=== PATIENT | female | born 1940 | race Caucasian/White ===

== ENCOUNTER 2022-03-16 14:08 | Inpatient (IN) | payer MEDICARE, OTHER, SELFPAY ==
[2022-03-16] VITALS (31 sets, daily range): BP systolic 123–179; BP diastolic 73–109; PULSE 111–157; RESP 15–33; TEMP 36.5; O2SAT 91–96
--- NOTE | 2022-03-16 14:32 | DI.RAD.S_ITS ---
PROCEDURE: XR CHEST 1V INDICATIONS: Chest pain TECHNIQUE: One view of the chest was acquired. COMPARISON: None. FINDINGS: Surgical changes and devices: None. Lungs and pleura: Lungs are clear. No pleural effusions or pneumothorax. Mediastinum: Mediastinal contours appear normal. Heart size is mildly enlarged. Bones and chest wall: No suspicious bony lesions. Overlying soft tissues appear unremarkable. IMPRESSION: Mild cardiomegaly. No acute cardiopulmonary process demonstrated. Dictated by: Yfn Griggs M.D. on 03/16/2022 at 15:13 Approved by: Yfn Griggs M.D. on 03/16/2022 at 15:14
--- NOTE | 2022-03-16 14:37 | ED.ARRPALP ---
HPI - Arrhythmia/Palpitations General Chief Complaint: Arrhythmia/Palpitations Stated Complaint: Heart rate too fast- sent by Time Seen by Provider: 03/16/22 14:34 Source: patient Mode of arrival: Wheelchair History of Present Illness HPI narrative: Patient is a 81-year-old female history of ulcerative colitis who presents today from her GI doctor with elevated heart rate. She has noticed that she has no more short of breath lately she thought that she has been using her albuterol inhaler more than usual. However her heart rate in the office within the 150s. She denies any real chest pain or palpitations. She denies any fever chills cough for really any other symptoms. She is noted to be in SVT although monitor the rate of 150 Related Data Allergies Allergy/AdvReac Type Severity Reaction Status Date / Time CODEINE AdvReac Mild LOSS OF Uncoded 11/23/17 12:11 BALANCE MORPHINE AdvReac Mild VIOLENT N&V Uncoded 11/23/17 12:11 Review of Systems Review of Systems Narrative: GENERAL: Denies chills, fatigue, malaise, fever, sweats, travel HEENT: Denies sinus pain, ear pain, sore throat, difficulty swallowing, neck pain RESPIRATORY: Denies dyspnea, cough, wheezing, hemoptysis, sputum. CARDIOVASCULAR: See HPI GASTROINTESTINAL: Denies nausea, vomiting, abdominal pain, diarrhea, constipation, melena. : Denies dysuria, frequency, incontinence, hematuria, urinary retention, flank pain. MUSCULOSKELETAL: Denies weakness, joint pain, or bony pain SKIN: No rash, no erythema, no pruritus NEUROLOGIC: Denies weakness, dizziness, headache, numbness, change in speech, confusion PSYCHIATRIC: No concerning psychosocial issues. 12 point review of systems is negative except for those stated above and HPI Exam Initial Vital Signs Initial Vital Signs: Vital Signs Temperature 97.7 F 03/16/22 14:24 Pulse Rate 156 H 03/16/22 14:24 Respiratory Rate 22 03/16/22 14:24 Blood Pressure 179/107 H 03/16/22 14:24 Pulse Oximetry 96 03/16/22 14:24 Oxygen Delivery Method 03/16/22 14:24 GENERAL: Alert 81-year-old female and in no acute distress. HEENT: Head atraumatic,EOMI, pupils reactive, face symmetric, moist mucous membranes CARDIOVASCULAR: Tachycardic regular RESPIRATORY: Breath sounds equal bilaterally, no wheezes rales or rhonchi. ABDOMEN: Soft, nontender. Normoactive bowel sounds all 4 quadrants. No guarding or rebound. EXTREMITIES: Normal range of motion, no clubbing or edema. Neurovascularly intact NEUROLOGICAL: Alert and oriented x4.Normal gait and speech. SKIN: Warm, dry, no laceration, no petechiae, no rashes or lesions. Course Orders Ordered: ED Orders 03/16/22 14:32 XR chest 1V Stat EKG-12 Lead Stat 03/16/22 14:40 Complete Blood Count AUTO DIFF Stat Comprehensive Metabolic Panel Stat D Dimer Stat Lipase Stat Magnesium Stat NT-proBNP (BNP-Adult 18+) Stat PT [Prothrombin Time INR] Stat PTT [Partial Thromboplastin Time] Stat TSH [Thyroid Stimulating Hormone] Stat Troponin & CK Cardiac Panel Stat DILTIAZEM (Diltiazem 125 Mg/125 Ml-D5w) 125 mg in 125 mls @ 5 mls/hr IV TITRATE ASHLEY; Protocol Last Admin: 03/16/22 16:48 Dose: 5 mg/hr, 5 mls/hr Documented By: JANNA Discontinued Medications Apixaban (Apixaban 5 Mg Tablet) 5 mg PO NOW ONE Stop: 03/16/22 16:25 Last Admin: 03/16/22 16:48 Dose: 5 mg Documented By: JNANA Diltiazem HCl (Diltiazem 5 Mg/Ml Sdv) 10 mg IV NOW ONE Stop: 03/16/22 14:45 Last Admin: 03/16/22 15:01 Dose: 10 mg Documented By: JANNA Diltiazem HCl (Diltiazem 5 Mg/Ml Sdv) 20 mg IV NOW ONE Stop: 03/16/22 15:14 Last Admin: 03/16/22 15:34 Dose: 20 mg Documented By: JANNA POTASSIUM CHLORIDE IN WATER (Potassium Cl 10 Meq/100 Ml Shirley) 10 meq in 100 mls @ 100 mls/hr IV Q1H ASHLEY Stop: 03/16/22 21:14 Last Admin: 03/16/22 15:54 Dose: Not Given Documented By: JANNA Vital Signs Vital signs: Vital Signs - 8 hr 03/16/22 14:24 03/16/22 15:01 03/16/22 15:34 Temperature 97.7 F Pulse Rate 156 H 150 H 148 H Respiratory Rate 22 Blood Pressure 179/107 H 176/109 H 142/86 H Pulse Oximetry 96 Oxygen Delivery Method Room Air MDM - Arrhythmia/Palpitations Lab Data Result diagrams: 03/16/22 14:40 03/16/22 14:40 Labs: Lab Results 03/16/22 03/16/22 03/16/22 Range/Units 14:40 14:40 14:40 WBC 11.5 H (4.5-11.0) X10^3/uL RBC 4.10 (4.0-5.2) X10^6/uL Hgb 13.1 (12.0-16.0) g/dL Hct 39.4 (36-46) % MCV 96.2 (80-100) fL MCH 31.9 (26-34) PG MCHC 33.2 (30-36) % RDW 15.4 H (11.6-14.8) % Plt Count 302 (150-400) X10^3/uL Neut % (Auto) 82.0 H (50-75) % Lymph % (Auto) 11.5 L (25-40) % [place] % (Auto) 3.9 (3-14) % Eos % (Auto) 1.4 L (2-4) % Baso % (Auto) 1.2 (0-2) % Neut # (Auto) 9400 H (6972-6846) /uL Lymph # (Auto) 1300 (6881-8665) /uL [place] # (Auto) 500 (0-900) /uL Eos # (Auto) 200 (0-450) /uL Baso # (Auto) 100 (0-100) /uL PT 11.7 (10.1-12.7) SECONDS INR 1.1 (0.9-1.3) APTT 33 (26.4-36.2) SECONDS D-Dimer 232 H (<230) ng/mL Sodium 138 (137-145) mmol/L Potassium 4.2 (3.4-5.1) mmol/L Chloride 102 (98-107) mmol/L Carbon Dioxide 28 (22-32) mmol/L BUN 16 (7-17) mg/dL Creatinine 0.79 (0.52-1.04) mg/dL Estimated GFR > 60 (>60) mL/min BUN/Creatinine Ratio 20.3 (6-22) Glucose 147 H (80-110) mg/dL Calcium 9.0 (8.4-10.2) mg/dL Magnesium 2.0 (1.6-2.3) mg/dL Total Bilirubin 0.9 (0.2-1.3) mg/dL AST 30 (14-36) IU/L ALT 24 (<35) IU/L Alkaline Phosphatase 75 (38-126) U/L Total Creatine Kinase 39 (30-135) U/L CK-MB (CK-2) TNP CK-MB (CK-2) Rel Index TNP Troponin I 0.027 (0.01-0.034) ng/mL NT-Pro-B Natriuret Pep 835 H (<450) pg/mL Total Protein 7.3 (6.3-8.2) g/dL Albumin 4.2 (3.5-5.0) g/dL Globulin 3.1 (1.7-4.1) g/dL Albumin/Globulin Ratio 1.4 (1.0-2.8) Lipase 33 (23-300) U/L TSH (0.47-4.68) uIU/mL 03/16/22 Range/Units 14:40 WBC (4.5-11.0) X10^3/uL RBC (4.0-5.2) X10^6/uL Hgb (12.0-16.0) g/dL Hct (36-46) % MCV (80-100) fL MCH (26-34) PG MCHC (30-36) % RDW (11.6-14.8) % Plt Count (150-400) X10^3/uL Neut % (Auto) (50-75) % Lymph % (Auto) (25-40) % [place] % (Auto) (3-14) % Eos % (Auto) (2-4) % Baso % (Auto) (0-2) % Neut # (Auto) (3113-0017) /uL Lymph # (Auto) (4250-1399) /uL [place] # (Auto) (0-900) /uL Eos # (Auto) (0-450) /uL Baso # (Auto) (0-100) /uL PT (10.1-12.7) SECONDS INR (0.9-1.3) APTT (26.4-36.2) SECONDS D-Dimer (<230) ng/mL Sodium (137-145) mmol/L Potassium (3.4-5.1) mmol/L Chloride (98-107) mmol/L Carbon Dioxide (22-32) mmol/L BUN (7-17) mg/dL Creatinine (0.52-1.04) mg/dL Estimated GFR (>60) mL/min BUN/Creatinine Ratio (6-22) Glucose (80-110) mg/dL Calcium (8.4-10.2) mg/dL Magnesium (1.6-2.3) mg/dL Total Bilirubin (0.2-1.3) mg/dL AST (14-36) IU/L ALT (<35) IU/L Alkaline Phosphatase (38-126) U/L Total Creatine Kinase (30-135) U/L CK-MB (CK-2) CK-MB (CK-2) Rel Index Troponin I (0.01-0.034) ng/mL NT-Pro-B Natriuret Pep (<450) pg/mL Total Protein (6.3-8.2) g/dL Albumin (3.5-5.0) g/dL Globulin (1.7-4.1) g/dL Albumin/Globulin Ratio (1.0-2.8) Lipase (23-300) U/L TSH 2.44 (0.47-4.68) uIU/mL Imaging Data Chest x-ray: Radiologist's Impresson: XRay Report Signed Patient: Ruby Reynolds MR#: [id number] : 1940 Acct:[id number] Age/Sex: 81 / F Date of Service: 03/16/22 Loc: ED Accession Number: [id number] ?? Procedure: XR chest 1V Ordering Provider: Nataliia Sandoval D.O. PROCEDURE:? XR CHEST 1V ? INDICATIONS: Chest pain ? TECHNIQUE:? One view of the chest was acquired.? ? COMPARISON:? None. ? FINDINGS:? ? Surgical changes and devices:? None.? ? Lungs and pleura:? Lungs are clear.? No pleural effusions or pneumothorax.? ? Mediastinum:? Mediastinal contours appear normal.? Heart size is mildly enlarged. ? Bones and chest wall:? No suspicious bony lesions.? Overlying soft tissues appear unremarkable.? ? IMPRESSION:? Mild cardiomegaly.? No acute cardiopulmonary process demonstrated.? ? ? Dictated by: Yfn Griggs M.D. on 03/16/2022 at 15:13 ? ? Approved by: Yfn Griggs M.D. on 03/16/2022 at 15:14 ? ECG Data Interpretation: Tachycardia rate 151 SVT versus atrial flutter 1-[address] changes Atrial flutter rate [address] changes PVCs noted MDM Narrative Medical decision making narrative: Patient is found to be new onset atrial fibrillation. It is difficult to tell when this actually started not a good candidate for cardioversion. Initially she was given 10 mg of diltiazem she did not respond she was then given another 20 mg of diltiazem which slowed her rate and showed atrial flutter. BNP is mildly elevated chest x-ray shows some mild cardiomegaly. She is not hypoxic. She is feeling better once her heart rate is controlled. At this time will she will need to be admitted for further management. Dr. Mckenzie accepts patient Discharge Plan Departure Patient Disposition: Admitted As Inpatient Clinical Impression: Atrial fibrillation with rapid ventricular response Admit Date/Time: 03/16/22 16:28 Admit Provider: Jeff Mckenzie
[2022-03-16 14:57] LABS: Add Manual Diff / Slide Review NO; Basophils Absolute Auto 100 /uL (0-100); Basophils Percent Auto 1.2 % (0-2); Eosinophils Absolute Auto 200 /uL (0-450); Eosinophils Percent Auto 1.4 % (2-4); Hematocrit 39.4 % (36-46); Hemoglobin 13.1 g/dL (12.0-16.0); Lymphocytes Absolute Auto 1300 /uL (1100-4500); Lymphocytes Percent Auto 11.5 % (25-40); Mean Corpuscular HGB Conc 33.2 % (30-36); Mean Corpuscular Hemoglobin 31.9 PG (26-34); Mean Corpuscular Volume 96.2 fL (80-100); Monocytes Absolute Auto 500 /uL (0-900); Monocytes Percent Auto 3.9 % (3-14); Neutrophils Absolute Auto 9400 /uL (1500-7000); Platelet Count 302 X10^3/uL (150-400); Red Cell Distribution Width 15.4 % (11.6-14.8); White Blood Cell Count 11.5 X10^3/uL (4.5-11.0)
[2022-03-16] MEDS: dilTIAZem 5 MG/ML SDV 10 MG IV (15:01)
[2022-03-16 15:13] LABS: INR 1.1 (0.9-1.3); Prothrombin Time 11.7 SECONDS (10.1-12.7)
[2022-03-16 15:16] LABS: PTT Partial Thromboplastin Tim 33 SECONDS (26.4-36.2)
[2022-03-16 15:17] LABS: Alanine Aminotransferase 24 IU/L (<35); Albumin 4.2 g/dL (3.5-5.0); Albumin Globulin Ratio 1.4 (1.0-2.8); Alkaline Phosphatase 75 U/L (38-126); Aspartate Aminotransferase 30 IU/L (14-36); BUN Creatinine Ratio 20.3 (6-22); Bilirubin Total 0.9 mg/dL (0.2-1.3); Blood Urea Nitrogen 16 mg/dL (7-17); Carbon Dioxide 28 mmol/L (22-32); Chloride 102 mmol/L (98-107); Creatine Kinase 39 U/L (30-135); D Dimer 232 ng/mL (<230); Estimated Glomerular Filt Rate > 60 mL/min (>60); Globulin 3.1 g/dL (1.7-4.1); Glucose 147 mg/dL (80-110); HEMOLYSIS < 15 (0-50); Lipase 33 U/L (23-300); Potassium 4.2 mmol/L (3.4-5.1); Sodium 138 mmol/L (137-145); Total Protein 7.3 g/dL (6.3-8.2)
[2022-03-16 15:29] LABS: NT-proBNP (BNP-Adult 18+) 835 pg/mL (<450); Troponin I 0.027 ng/mL (0.01-0.034)
[2022-03-16] MEDS: dilTIAZem 5 MG/ML SDV 20 MG IV (15:34)
[2022-03-16 16:39] LABS: Thyroid Stimulating Hormone 2.44 uIU/mL (0.47-4.68)
[2022-03-16] MEDS: DILTIAZEM 125 MG/125 ML PIGGYBACK IV (16:48)
[2022-03-16] MEDS: APIXABAN 5 MG TABLET PO (16:48)
--- NOTE | 2022-03-16 17:40 | P.HP_ITS ---
History of Present Illness History of Present Illness Date Patient Seen: 03/16/22 Time Patient Seen: 17:40 Chief complaint: Heart rate too fast- sent by Narrative: Ruby Reynolds is a 81yo F with PMH of ulcerative colitis in remission and obesity who presents from GI clinic after being found to be in A-fib RVR. She states she does not have any history of A-fib. She has no history of heart problems. At the GI clinic she was found to have a HR of 150 at rest. Was sent to the ED where A-fib was confirmed via EKG. Dilt drip started. She cannot tell she is in A-fib, but has experienced dyspnea with exertion the past 3 days. She denies history of CASEY but does snore alot per . She denies CP, SOB, abd pain, diarrhea or LE swelling. Her UC is currently in remission on azathioprine and mesalamine and she has not had rectal bleeding for several years. Patient History Medical History (Updated 03/16/22 @ 22:38 by Jeff Mckenzie DO) Ulcerative colitis in remission Family & Social History Social History: Former smoker and quit in . Drinks alcohol rarely. Meds Home Medications and Allergies Home Medications Medication Instructions Recorded Confirmed Type azathioprine 50 mg tablet 100 mg PO DAILY 03/16/22 03/16/22 History cetirizine 10 mg tablet 10 mg PO DAILY 03/16/22 03/16/22 History cholecalciferol (vitamin D3) 50 2,000 unit PO DAILY 03/16/22 03/16/22 History mcg (2,000 unit) tablet mesalamine 1.2 gram tablet,delayed 2.4 g PO BID 03/16/22 03/16/22 History release (Lialda) Allergies Allergy/AdvReac Type Severity Reaction Status Date / Time codeine AdvReac Verified 03/16/22 18:42 morphine AdvReac Verified 03/16/22 18:42 Review of Systems Review of Systems Narrative: All review of systems negative unless otherwise stated in HPI. Exam Vital Signs (past 8 hours): - 03/16/22 14:24 03/16/22 15:01 03/16/22 15:34 Temperature 97.7 F Pulse Rate 156 H 150 H 148 H Respiratory Rate 22 Blood Pressure 179/107 H 176/109 H 142/86 H Pulse Oximetry 96 Oxygen Delivery Method Room Air Oxygen Delivery Method Room Air Narrative Exam Narrative: GEN: Obese female in NAD HEENT: Mucous membraines moist. PERRL PULM: CTA bilaterally CV: Irregularly irregular, tachycardic. No murmurs. EXT: No edema ABD: Soft and nontender NEURO: No focal deficits. SKIN: No rashes. Objective Labs Result Diagrams: 03/16/22 14:40 03/16/22 14:40 Labs: Laboratory Results - last 24 hr 03/16/22 03/16/22 03/16/22 14:40 14:40 14:40 WBC 11.5 H RBC 4.10 Hgb 13.1 Hct 39.4 MCV 96.2 MCH 31.9 MCHC 33.2 RDW 15.4 H Plt Count 302 Neut % (Auto) 82.0 H Lymph % (Auto) 11.5 L [place] % (Auto) 3.9 Eos % (Auto) 1.4 L Baso % (Auto) 1.2 Neut # (Auto) 9400 H Lymph # (Auto) 1300 [place] # (Auto) 500 Eos # (Auto) 200 Baso # (Auto) 100 PT 11.7 INR 1.1 APTT 33 D-Dimer 232 H Sodium 138 Potassium 4.2 Chloride 102 Carbon Dioxide 28 BUN 16 Creatinine 0.79 Estimated GFR > 60 BUN/Creatinine Ratio 20.3 Glucose 147 H Calcium 9.0 Magnesium 2.0 Total Bilirubin 0.9 AST 30 ALT 24 Alkaline Phosphatase 75 Total Creatine Kinase 39 CK-MB (CK-2) TNP CK-MB (CK-2) Rel Index TNP Troponin I 0.027 NT-Pro-B Natriuret Pep 835 H Total Protein 7.3 Albumin 4.2 Globulin 3.1 Albumin/Globulin Ratio 1.4 Lipase 33 TSH 03/16/22 14:40 WBC RBC Hgb Hct MCV MCH MCHC RDW Plt Count Neut % (Auto) Lymph % (Auto) [place] % (Auto) Eos % (Auto) Baso % (Auto) Neut # (Auto) Lymph # (Auto) [place] # (Auto) Eos # (Auto) Baso # (Auto) PT INR APTT D-Dimer Sodium Potassium Chloride Carbon Dioxide BUN Creatinine Estimated GFR BUN/Creatinine Ratio Glucose Calcium Magnesium Total Bilirubin AST ALT Alkaline Phosphatase Total Creatine Kinase CK-MB (CK-2) CK-MB (CK-2) Rel Index Troponin I NT-Pro-B Natriuret Pep Total Protein Albumin Globulin Albumin/Globulin Ratio Lipase TSH 2.44 Assessment & Plan Assessment & Plan narrative: # New-onset atrial fibrillation with RVR -HR 150's at GI clinic and sent to ED -start dilt drip and admit to ICU for titrating -start Eliquis due to [id number] of 3 -obtain echo -consider outpatient sleep study to check for CASEY as patient has risk factors # elevated BP -no h/o of HTN, BP consistently elevated at 140-170's systolic -consider starting BP meds while admitted # ulcerative colitis -currently in remission for past 7 years -followed by Dr. Giang GI -continue home azathioprine and mesalamine # obesity -Bariatric precautions #mild leukocytosis -WBC 11.5 -monitor for infection Full code COVID negative DVT proph with eliquis Proxy is . I have reviewed and reconciled all home medications. Time Spent With Patient Critical Care time: I spent a total of [] minutes of critical care time on this patient's care today; this time is exclusive of procedural time.
[2022-03-17] VITALS (30 sets, daily range): BP systolic 111–150; BP diastolic 55–99; PULSE 68–102; RESP 13–28; TEMP 36.1–36.4; O2SAT 85–96; BMI 45.6
--- NOTE | 2022-03-17 01:52 | PC.NURSE ---
Addendum entered by Nella Arreguin R.N. 03/17/22 01:57: Correction: marcie chew and marcie tea. Original Note: Pt noted to convert to sinus rhythn, 12 lead EKG obtained to confirm. Pt c/o indigestion, unrelieved by her usual home remedies of marcie chew and finger tea. Pt states the pain is in left chest radiating to armpit, better when ambulating. ARJUN Romero notified of rhythm change and complaints of chest pain, orders received. Will begin to titrate diltiazem drip down
[2022-03-17] MEDS: MAG HYDROX/ALUMINUM/SIMETH SUS 20 ML, LIDOCAINE VISCOUS 2% 15 ML PO (02:06)
[2022-03-17] MEDS: NITROGLYCERIN 0.4 MG SL TAB SL (02:47)
[2022-03-17] MEDS: ONDANSETRON 4 MG/2 ML INJ IV (03:05)
[2022-03-17] MEDS: PANTOPRAZOLE 40 MG VIAL IV (03:05)
--- NOTE | 2022-03-17 03:41 | PC.NURSE ---
SpO2 dropped into 80's on room air. 2 liters O2 by NC applied, sats now 95%
--- NOTE | 2022-03-17 03:45 | DI.CT.S_ITS ---
PROCEDURE: CT ANGIO CHEST PE PROTOCOL INDICATIONS: Short of breath, chest pain TECHNIQUE: After the administration of intravenous contrast, 2 mm thick sections acquired from the pulmonary apices to the posterior costophrenic angles. 3-dimensional maximum intensity projection (MIP) coronal and sagittal reformats were then acquired through the thorax. For radiation dose reduction, the following was used: automated exposure control, adjustment of mA and/or kV according to patient size. COMPARISON: [facility], CR, XR CHEST 1V, 03/16/2022, 14:48. FINDINGS: Image quality: Excellent. Pulmonary arteries: Pulmonary arteries are normal in size, and demonstrate no intraluminal filling defects to suggest central pulmonary embolism. Lungs and pleura: Small bilateral pleural effusions are seen, right larger than left. Overlying dependent atelectasis is seen. Mediastinum: Heart size is mildly enlarged, without pericardial effusion. Mildly enlarged lymph nodes are seen. There is a prevascular lymph node seen that measures 10 x 18 mm in greatest axial dimension. Thoracic aorta is normal in caliber and enhancement. 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 This is considered to be a developmental variant of no clinical consequence. Esophagus is normal in caliber, without hiatal hernia. Bones and chest wall: Cervical spine fixation hardware is partially seen. No suspicious bony lesions. Ribs and thoracic spine appear intact throughout. Thyroid gland demonstrates no significant abnormality. No axillary or supraclavicular adenopathy. Abdomen: Diffuse fatty liver infiltration is noted. The visualized portions of the upper abdominal structures are otherwise unremarkable for imaging technique. IMPRESSION: Negative for pulmonary embolism. Small bilateral pleural effusions, with overlying atelectasis. Mild mediastinal lymphadenopathy, potentially reactive. Mild cardiomegaly. Incidental note is made of: Cervical spine fixation hardware Bovine type aortic branching pattern Note: No significant discrepancy from the preliminary report. Dictated by: Domenic Bah M.D. on 03/17/2022 at 8:25 Approved by: Domenic Bah M.D. on 03/17/2022 at 8:28
--- NOTE | 2022-03-17 03:50 | PC.NURSE ---
ARJUN Romero notified of pt condition, including new oxygen requirement, RR 20's, fatigue, and crackles to LLL. Discussed concern for PE, response to medications, and pt's mild distress this evening. CTA ordered and repeat BNP.
[2022-03-17 04:00] LABS: Add Manual Diff / Slide Review NO; Basophils Absolute Auto 100 /uL (0-100); Basophils Percent Auto 0.9 % (0-2); Eosinophils Absolute Auto 200 /uL (0-450); Eosinophils Percent Auto 1.5 % (2-4); Hematocrit 35.7 % (36-46); Lymphocytes Absolute Auto 1400 /uL (1100-4500); Lymphocytes Percent Auto 12.4 % (25-40); Mean Corpuscular HGB Conc 33.7 % (30-36); Mean Corpuscular Hemoglobin 32.3 PG (26-34); Monocytes Absolute Auto 500 /uL (0-900); Monocytes Percent Auto 4.5 % (3-14); Neutrophils Absolute Auto 9100 /uL (1500-7000); Neutrophils Percent Auto 80.7 % (50-75); Platelet Count 278 X10^3/uL (150-400); Red Blood Cell Count 3.72 X10^6/uL (4.0-5.2); Red Cell Distribution Width 15.5 % (11.6-14.8); White Blood Cell Count 11.3 X10^3/uL (4.5-11.0)
[2022-03-17 04:18] LABS: Alanine Aminotransferase 22 IU/L (<35); Albumin 3.5 g/dL (3.5-5.0); Albumin Globulin Ratio 1.3 (1.0-2.8); Alkaline Phosphatase 62 U/L (38-126); Aspartate Aminotransferase 37 IU/L (14-36); BUN Creatinine Ratio 23.9 (6-22); Blood Urea Nitrogen 16 mg/dL (7-17); Calcium 8.3 mg/dL (8.4-10.2); Carbon Dioxide 23 mmol/L (22-32); Chloride 106 mmol/L (98-107); Estimated Glomerular Filt Rate > 60 mL/min (>60); Globulin 2.8 g/dL (1.7-4.1); Glucose 167 mg/dL (80-110); HEMOLYSIS 21 (0-50); Potassium 4.1 mmol/L (3.4-5.1); Sodium 138 mmol/L (137-145); Total Protein 6.3 g/dL (6.3-8.2)
[2022-03-17 04:26] LABS: NT-proBNP (BNP-Adult 18+) 606 pg/mL (<450)
[2022-03-17 04:29] LABS: Troponin I 0.035 ng/mL (0.01-0.034)
[2022-03-17 05:18] LABS: COVID19 -Nasal RAPID Negative (Negative)
[2022-03-17] MEDS: dilTIAZem 30 MG TABLET PO ×3 (06:48→18:25)
--- NOTE | 2022-03-17 07:12 | PM.PN.1 ---
Subjective Subjective Date Patient Seen: 03/17/22 Time Patient Seen: 17:17 Interval history: Patient states she has been feeling short of breath and wheezy without her inhaler and is requesting her albuterol. Otherwise she has been tolerating po dilt and HR has been 60-70's. Exam Vital Signs (past 8 hours): - 03/16/22 23:30 03/17/22 00:00 03/17/22 00:05 Pulse Rate 116 H 97 H Respiratory Rate 18 15 Blood Pressure 150/99 H Pulse Oximetry 93 93 Oxygen Delivery Method Oxygen Flow Rate 03/17/22 00:05 03/17/22 00:30 03/17/22 01:00 Pulse Rate 102 H 101 H 97 H Respiratory Rate 20 13 25 H Blood Pressure Pulse Oximetry 93 93 92 Oxygen Delivery Method Oxygen Flow Rate 03/17/22 01:30 03/17/22 01:47 03/17/22 01:47 Pulse Rate 72 73 Respiratory Rate 15 26 H Blood Pressure 146/66 H Pulse Oximetry 93 92 Oxygen Delivery Method Oxygen Flow Rate 03/17/22 02:00 03/17/22 02:30 03/17/22 02:44 Pulse Rate 71 69 Respiratory Rate 15 15 Blood Pressure 129/61 Pulse Oximetry 92 92 Oxygen Delivery Method Oxygen Flow Rate 03/17/22 02:44 03/17/22 03:40 03/17/22 03:00 Pulse Rate 71 69 Respiratory Rate 20 16 Blood Pressure Pulse Oximetry 92 95 89 L Oxygen Delivery Method Nasal Cannula Oxygen Flow Rate 2 03/17/22 03:01 03/17/22 03:01 03/17/22 03:14 Pulse Rate 69 Respiratory Rate 17 Blood Pressure 133/72 117/61 Pulse Oximetry 89 L Oxygen Delivery Method Oxygen Flow Rate 03/17/22 03:14 03/17/22 03:30 03/17/22 04:00 Pulse Rate 68 71 68 Respiratory Rate 19 19 21 Blood Pressure Pulse Oximetry 92 85 L 94 Oxygen Delivery Method Oxygen Flow Rate 03/17/22 04:30 03/17/22 05:00 03/17/22 05:30 Pulse Rate 86 74 73 Respiratory Rate 26 H 18 17 Blood Pressure Pulse Oximetry 92 93 93 Oxygen Delivery Method Oxygen Flow Rate Oxygen Delivery Method Nasal Cannula Oxygen Flow Rate 2 Narrative Exam Narrative: GEN: Obese female in NAD HEENT: Mucous membraines moist. PERRL PULM: Mild wheezes CV: Irregularly irregular, normal rate. No murmurs. EXT: No edema ABD: Soft and nontender NEURO: No focal deficits. SKIN: No rashes. Objective Labs Result Diagrams: 03/17/22 03:30 03/17/22 03:30 Labs: Laboratory Results - last 24 hr 03/16/22 03/16/22 03/16/22 14:40 14:40 14:40 WBC 11.5 H RBC 4.10 Hgb 13.1 Hct 39.4 MCV 96.2 MCH 31.9 MCHC 33.2 RDW 15.4 H Plt Count 302 Neut % (Auto) 82.0 H Lymph % (Auto) 11.5 L [place] % (Auto) 3.9 Eos % (Auto) 1.4 L Baso % (Auto) 1.2 Neut # (Auto) 9400 H Lymph # (Auto) 1300 [place] # (Auto) 500 Eos # (Auto) 200 Baso # (Auto) 100 PT 11.7 INR 1.1 APTT 33 D-Dimer 232 H Sodium 138 Potassium 4.2 Chloride 102 Carbon Dioxide 28 BUN 16 Creatinine 0.79 Estimated GFR > 60 BUN/Creatinine Ratio 20.3 Glucose 147 H Calcium 9.0 Magnesium 2.0 Total Bilirubin 0.9 AST 30 ALT 24 Alkaline Phosphatase 75 Total Creatine Kinase 39 CK-MB (CK-2) TNP CK-MB (CK-2) Rel Index TNP Troponin I 0.027 NT-Pro-B Natriuret Pep 835 H Total Protein 7.3 Albumin 4.2 Globulin 3.1 Albumin/Globulin Ratio 1.4 Lipase 33 TSH SARS-CoV-2 (PCR) 03/16/22 03/17/22 03/17/22 14:40 03:30 03:30 WBC 11.3 H RBC 3.72 L Hgb 12.0 Hct 35.7 L MCV 96.0 MCH 32.3 MCHC 33.7 RDW 15.5 H Plt Count 278 Neut % (Auto) 80.7 H Lymph % (Auto) 12.4 L [place] % (Auto) 4.5 Eos % (Auto) 1.5 L Baso % (Auto) 0.9 Neut # (Auto) 9100 H Lymph # (Auto) 1400 [place] # (Auto) 500 Eos # (Auto) 200 Baso # (Auto) 100 PT INR APTT D-Dimer Sodium 138 Potassium 4.1 Chloride 106 Carbon Dioxide 23 BUN 16 Creatinine 0.67 Estimated GFR > 60 BUN/Creatinine Ratio 23.9 H Glucose 167 H Calcium 8.3 L Magnesium Total Bilirubin 1.0 AST 37 H ALT 22 Alkaline Phosphatase 62 Total Creatine Kinase CK-MB (CK-2) CK-MB (CK-2) Rel Index Troponin I 0.035 H NT-Pro-B Natriuret Pep Total Protein 6.3 Albumin 3.5 Globulin 2.8 Albumin/Globulin Ratio 1.3 Lipase TSH 2.44 SARS-CoV-2 (PCR) 03/17/22 03/17/22 03:30 04:55 WBC RBC Hgb Hct MCV MCH MCHC RDW Plt Count Neut % (Auto) Lymph % (Auto) [place] % (Auto) Eos % (Auto) Baso % (Auto) Neut # (Auto) Lymph # (Auto) [place] # (Auto) Eos # (Auto) Baso # (Auto) PT INR APTT D-Dimer Sodium Potassium Chloride Carbon Dioxide BUN Creatinine Estimated GFR BUN/Creatinine Ratio Glucose Calcium Magnesium Total Bilirubin AST ALT Alkaline Phosphatase Total Creatine Kinase CK-MB (CK-2) CK-MB (CK-2) Rel Index Troponin I NT-Pro-B Natriuret Pep 606 H Total Protein Albumin Globulin Albumin/Globulin Ratio Lipase TSH SARS-CoV-2 (PCR) Negative PFSH Medical History (Updated 03/16/22 @ 22:38 by Jeff Mckenzie DO) Ulcerative colitis in remission Social History household members: spouse Smoking Status: Former smoker Assessment & Plan Assessment & Plan narrative: # New-onset atrial fibrillation, RVR component resolved -HR 150's at GI clinic and sent to ED -weaned off dilt drip and well controlled HR on 30mg po dilt q6h, change to dilt XL 120 daily starting 03/18 -continue Eliquis due to [id number] of 3 -awaiting echo read -consider outpatient sleep study to check for CASEY as patient has risk factors # acute hypoxia -patient requiring 2L NC -likely secondary to asthma -restart home inhalers and loratidine # type 2 diabetes -A1c returned at 7.7%, patient not a known diabetic -diabetes education consult -low dose SSI # elevated BP -no h/o of HTN, BP consistently elevated at 140-170's systolic -consider starting BP meds while admitted # ulcerative colitis -currently in remission for past 7 years -followed by Dr. Giang GI -continue home azathioprine and mesalamine # obesity -Bariatric precautions #mild leukocytosis -WBC 11.5 -monitor for infection Full code COVID negative DVT proph with eliquis Proxy is . I have reviewed and reconciled all home medications. Dispo: D/c on 03/18. Time Spent With Patient Critical Care time: I spent a total of [] minutes of critical care time on this patient's care today; this time is exclusive of procedural time.
--- NOTE | 2022-03-17 07:18 | DI.ECHO.S_ITS ---
[facility]---------+ [facility] +---------+ : : [address] : : : : [id number] : : : : Phone: [phone]+ Echocardiogram Report + + :Name: SUBHASH BELLAMY Study Date: 03/17/2022 Height: 67 in : :[facility] ReadingLocation: Weight: 291 lb : : Gender: Female BSA: 2.4 m2 : :: 1940 Age: 81 yrs BP: 117/61 mmHg: :Reason For Study: ATRIAL FIBRILLATION : :Ordering Physician: BANDAR, : :TERI Jamil D.O Performed By: Jeanne Horner : :Referring: TERI PORTILLO D.O : + + Interpretation Summary The left ventricle is mildly dilated. Left ventricular ejection fraction is estimated to be 60 +/- 5%. Left ventricular systolic function is normal. The right ventricle is grossly normal size. The right ventricular systolic function is normal. There is moderate mitral regurgitation. The aortic valve is trileaflet. There is minimally reduced leaflet mobility. There is mild tricuspid regurgitation. Right ventricular systolic pressure is estimated to be 42 mmHg plus the clinically estimated CVP which cannot be estimated on this exam. Procedure: A two-dimensional transthoracic echocardiogram with color flow and Doppler was performed. The study quality was technically adequate. There is no prior echocardiogram noted for this patient. The patient was in sinus rhythm with heart rates between 75-90 bpm during the exam. The patient had occasional PACs during the exam. Left Ventricle: The left ventricle is mildly dilated. There is normal left ventricular wall thickness. There is no thrombus. Left ventricular ejection fraction is estimated to be 60 +/- 5%. Left ventricular systolic function is normal. There are no focal wall motion abnormalities. Diastolic function could not be accurately assessed due to atrial fibrillation. E/E' med: 22.7. Right Ventricle: The right ventricle is not well visualized. The right ventricle is grossly normal size. The right ventricular systolic function is normal. Atria: The left atrium is severely dilated. The right atrium is moderately dilated. There is no Doppler evidence for an interatrial shunt. Mitral Valve: The mitral valve leaflets appear borderline thickened, but open well. There is mild mitral annular calcification. The mitral valve leaflets are slightly calcified. There is moderate mitral regurgitation. Aortic Valve: The aortic valve is trileaflet. The aortic valve is mildly calcified. There is minimally reduced leaflet mobility. There is no hemodynamically significant valvular aortic stenosis. No aortic regurgitation is present. Tricuspid Valve: The tricuspid valve is normal. There is mild tricuspid regurgitation. Right ventricular systolic pressure is estimated to be 42 mmHg plus the clinically estimated CVP which cannot be estimated on this exam. Pulmonic Valve: The pulmonic valve is not well seen, but is grossly normal. There is trace pulmonic regurgitation. Great Vessels: The aortic root is normal size. The dimensions of the ascending aorta are normal. The aortic arch could not be visualized. The inferior vena cava was not visualized. Pericardium/ Pleura There is no pericardial effusion. There is an anterior echo-free space consistent with a fat pad. There is no pleural effusion. MMode/2D Measurements & Calculations LVIDd: 5.6 cm LVOT diam: 2.2 cm LVIDs: 3.5 cm Ao root diam: 3.1 cm FS: 37.4 % asc Aorta Diam: 3.4 cm EPSS: 1.1 cm IVSd: 0.99 cm LVPWd: 1.1 cm LV gonzalez. diameter/BSA (cm/m^2): 2.3 LV sys. diameter/BSA (cm/m^2): 1.5 LA A2 area: 33.5 cm2 RA long axis: 6.1 cm LA A4 area: 32.6 cm2 RA area: 26.2 cm2 LA length (vol): 7.3 cm RA vol: 95.9 ml LA vol: 127.8 ml RA : 40.4 ml/m2 LA vol index: 53.9 ml/m2 TAPSE: 2.6 cm Doppler Measurements & Calculations Ao V2 max: 193.3 cm/sec LVOT Max Sarthak: 84.8 cm/sec Ao V2 mean: 131.3 cm/sec LV V1 max P.9 mmHg Ao max P.0 mmHg LV V1 VTI: 15.8 cm Ao mean P.8 mmHg JESSICA(I,D): 1.8 cm2 Ao V2 VTI: 33.3 cm JESSICA(V,D): 1.6 cm2 sev ratio: 0.47 JESSICA indexed to BSA (cm^2/m^2): 0.75 MV E max sarthak: 146.1 cm/sec TR max sarthak: 323.0 cm/sec MV A max sarthak: 30.8 cm/sec TR max P.8 mmHg MV E/A: 4.7 PA V2 max: 99.9 cm/sec Med Peak E' Sarthak: 6.4 cm/sec PA V2 mean: 66.5 cm/sec E/E' med: 22.7 PA mean P.0 mmHg Lat Peak E' Sarthak: 8.2 cm/sec PA pr(Accel): 34.5 mmHg E/E' lat: 17.9 E/e' average: 20.3 MV dec time: 0.27 sec MR ERO: 0.50 cm2 MR PISA: 5.6 cm2 SV(LVOT): 59.2 ml MR flow rate: 240.1 cm3/sec MR PISA radius: 0.94 cm Reading Physician:11:12 AM
[2022-03-17 07:57] LABS: Hemoglobin A1C% w Est Avg Glu 7.7 % (4.0-6.0)
[2022-03-17] MEDS: APIXABAN 5 MG TABLET PO ×2 (09:30→20:39)
[2022-03-17] MEDS: azaTHIOprine 50 MG TABLET 100 MG PO (10:43)
[2022-03-17] MEDS: MESALAMINE 800 MG TABLET.DR 2400 MG PO (10:44)
--- NOTE | 2022-03-17 15:36 | DIET.CONS2 ---
Dietary Inpatient Consultation Note Admission Date: 03/16/2022 16:28 Attempted to meet c pt at bedside, working with other provider at the time. Changed pts diet order to CCD3 with heart healthy modifier from Heart Healthy related to new onset DM2 (HgA1c 7.7). Will consult c pt in am. Diet: 03/17/22 Dinner Carbohydrate Consistent Diet Diet Modifications: heart healthy Carbohydrate level: Medium (3 CHO) Bedtime snack: Yes Electronically Signed by: Griselda Lakhani 03/17/22 15:37 Clinical Dietitian [address] [address]
[2022-03-17] MEDS: ALBUTEROL 2.5 MG/3 ML NEB (ADULT) INH (19:46)
[2022-03-17] MEDS: BUDESONIDE 0.5 MG/2 ML NEB INH (19:46)
[2022-03-18] VITALS (11 sets, daily range): BP systolic 101–133; BP diastolic 50–71; PULSE 82–88; RESP 18–22; TEMP 36.2–36.6; O2SAT 89–96
[2022-03-18] MEDS: dilTIAZem 30 MG TABLET PO ×2 (01:47→05:29)
[2022-03-18] MEDS: ALBUTEROL 2.5 MG/3 ML NEB (ADULT) INH ×4 (02:26→20:03)
[2022-03-18] MEDS: guaiFENesin Solution 100 MG/5 ML UDC PO (05:24)
[2022-03-18 06:14] LABS: Add Manual Diff / Slide Review NO; Basophils Absolute Auto 0 /uL (0-100); Basophils Percent Auto 0.5 % (0-2); Eosinophils Absolute Auto 100 /uL (0-450); Hematocrit 34.7 % (36-46); Hemoglobin 11.8 g/dL (12.0-16.0); Lymphocytes Absolute Auto 900 /uL (1100-4500); Mean Corpuscular HGB Conc 33.9 % (30-36); Mean Corpuscular Hemoglobin 32.7 PG (26-34); Mean Corpuscular Volume 96.3 fL (80-100); Monocytes Absolute Auto 600 /uL (0-900); Monocytes Percent Auto 5.7 % (3-14); Neutrophils Absolute Auto 8600 /uL (1500-7000); Neutrophils Percent Auto 83.8 % (50-75); Platelet Count 268 X10^3/uL (150-400); Red Blood Cell Count 3.61 X10^6/uL (4.0-5.2); Red Cell Distribution Width 15.7 % (11.6-14.8); White Blood Cell Count 10.3 X10^3/uL (4.5-11.0)
[2022-03-18 06:18] LABS: BUN Creatinine Ratio 22.5 (6-22); Blood Urea Nitrogen 16 mg/dL (7-17); Calcium 8.5 mg/dL (8.4-10.2); Carbon Dioxide 28 mmol/L (22-32); Chloride 102 mmol/L (98-107); Estimated Glomerular Filt Rate > 60 mL/min (>60); Glucose 160 mg/dL (80-110); HEMOLYSIS < 15 (0-50); Potassium 4.4 mmol/L (3.4-5.1); Sodium 136 mmol/L (137-145)
[2022-03-18] MEDS: APIXABAN 5 MG TABLET PO ×2 (09:07→21:08)
[2022-03-18] MEDS: INSULIN LISPRO 100 UNIT/ML 3ML VIAL SUBCUT ×2 (09:08→17:18)
[2022-03-18] MEDS: BUDESONIDE 0.5 MG/2 ML NEB INH ×2 (09:08→20:04)
[2022-03-18] MEDS: dilTIAZem CD 120 MG CAP PO (10:59)
[2022-03-18] MEDS: LORATADINE 10 MG TABLET PO (10:59)
[2022-03-18] MEDS: MESALAMINE 800 MG TABLET.DR 2400 MG PO (10:59)
[2022-03-18] MEDS: azaTHIOprine 50 MG TABLET 100 MG PO (10:59)
--- NOTE | 2022-03-18 13:07 | CM.DANOTE ---
Patient is a 81 yo female who was admitted on 03/16/22 for Heart Rate Issues. Pt has [employer] for insurance and her PCP is Apoorva Estrella. EMR was reviewed. Per MD, pt with hx of AFIB and ulcerative colitis in remission and admitted for Echo and diuresis. Per RT, pt remains on oxygen currently and still has fluid buildup and recommending diuresis. SW met bedside with pt and explained role and she confirms she lives with her spouse in [place] and is mostly independent with ADL's and drives and does not have home oxygen at baseline. Pt states her spouse is her DPOA and her Dtr lives in [place] and is up here visiting now and they all had plans to go camping at [place] and spouse will be bedside later this morning in case pt can d/c and he will transport pt up to their campsite with their Dtr today or tomorrow. Pt denies any hx of HH or SNF and aware that there's a chance she may need to d/c with new Home O2 but attempts will be made to wean her off oxygen prior to d/c. Pt states she also was told she may have new borderline diabetes as well. Pt does not anticipate any needs at d/c and is hopeful to d/c later today but aware she may not be stable for d/c until tomorrow. Plan: SW to follow for further dieuresis and RT for oxygen levels towards confirming safe plan of d/c home with spouse assist and any further identified needs. PARRISH Archibald Discharge Planning/Care Management CM Discharge Assessment Start: 03/18/22 13:05 Freq: Status: Active Protocol: Document 03/18/22 13:06 (Rec: 03/18/22 13:07 [id number]) Discharge Planning Assessment Assigned Braider Setter PARRISH Kang DPOA/Assigned Designee Name spouse Daron Contact Information [phone] Advance Directives? No Advance Directives on File No History Provided By Patient,Medical Record Has Patient been admitted in last 30 No days? Prior Living Arrangements House Household Members spouse Type of transporation used prior to Drives own vehicle admit Independent with ADL's Yes Is patient alert and oriented? Yes Needs Assistance With Home Chores / Shopping Caregiver for Another No DME Already Rented / Owned FWW / Walker Barriers to Discharge No Discharge Plan Home Community Services Oxygen Therapy Transportation Arrangement Spouse plans to transport pt home at d/c Referrals Initiated None needed Additional Comment Possible need for new home O2 pending sats Whiteboard Updated in Patient Room with Yes name and ext. # of Braider Setter Review Status In Process Please Provide Date Initial DC 03/18/22 Assessment Was Performed Next Review Type Continued Stay Review
[2022-03-18] MEDS: FUROSEMIDE 40 MG/4 ML VIAL IV (13:37)
--- NOTE | 2022-03-18 18:20 | PM.PN.1 ---
Subjective Subjective Date Patient Seen: 03/18/22 Time Patient Seen: 12:00 Interval history: Patient still having some dyspnea. On 2L NC. Asking if she truly has diabetes and hasn't been able to meet with community educator yet. Exam Vital Signs (past 8 hours): - 03/18/22 12:04 03/18/22 14:49 03/18/22 17:51 Temperature 97.5 F L 97.6 F Pulse Rate 83 83 88 Respiratory Rate 22 20 22 Blood Pressure 107/55 L 101/50 L Pulse Oximetry 93 94 96 Oxygen Delivery Method Nasal Cannula Oxygen Flow Rate 0 1.5 2 Fraction of Inspired Oxygen 26 Fraction of Inspired Oxygen 26 Oxygen Delivery Method Nasal Cannula Oxygen Flow Rate 2 Narrative Exam Narrative: GEN: Obese female in NAD HEENT: Mucous membraines moist. PERRL PULM: Mild wheezes CV: Irregularly irregular, normal rate. No murmurs. EXT: No edema ABD: Soft and nontender NEURO: No focal deficits. SKIN: No rashes. Objective Labs Result Diagrams: 03/18/22 05:35 03/18/22 05:35 Labs: Laboratory Results - last 24 hr 03/18/22 03/18/22 05:35 05:35 WBC 10.3 RBC 3.61 L Hgb 11.8 L Hct 34.7 L MCV 96.3 MCH 32.7 MCHC 33.9 RDW 15.7 H Plt Count 268 Neut % (Auto) 83.8 H Lymph % (Auto) 9.0 L [place] % (Auto) 5.7 Eos % (Auto) 1.0 L Baso % (Auto) 0.5 Neut # (Auto) 8600 H Lymph # (Auto) 900 L [place] # (Auto) 600 Eos # (Auto) 100 Baso # (Auto) 0 Sodium 136 L Potassium 4.4 Chloride 102 Carbon Dioxide 28 BUN 16 Creatinine 0.71 Estimated GFR > 60 BUN/Creatinine Ratio 22.5 H Glucose 160 H Calcium 8.5 PFSH Medical History (Updated 03/16/22 @ 22:38 by Jeff Mckenzie DO) Ulcerative colitis in remission Social History household members: spouse Smoking Status: Former smoker Assessment & Plan Assessment & Plan narrative: # New-onset atrial fibrillation, RVR component resolved -HR 150's at GI clinic and sent to ED -weaned off dilt drip and well controlled HR on 30mg po dilt q6h, change to dilt XL 120 daily starting 03/18 -continue Eliquis due to [id number] of 3 -echo shows EF 60-65% with mildly dilated LV, mod mitral regurg and elevated RVSP at 42 -consider outpatient sleep study to check for CASEY as patient has risk factors -will need outpatient cardiology f/u # acute hypoxia -patient requiring 2L NC -likely secondary to asthma vs pulm HTN -restart home inhalers and loratidine -lasix 40 IV # pulmonary HTN -RVSP 42 on echo -likely secondary to undiagnosed sleep apnea -trial CPAP at night # type 2 diabetes -A1c returned at 7.7%, patient not a known diabetic -diabetes education consult -low dose SSI # elevated BP -no h/o of HTN, BP consistently elevated at 140-170's systolic -consider starting BP meds while admitted # ulcerative colitis -currently in remission for past 7 years -followed by Dr. Giang GI -continue home azathioprine and mesalamine # obesity -Bariatric precautions #mild leukocytosis -WBC 11.5 -monitor for infection Full code COVID negative DVT proph with eliquis Proxy is . I have reviewed and reconciled all home medications. Dispo: D/c on 03/19. Time Spent With Patient Critical Care time: I spent a total of [] minutes of critical care time on this patient's care today; this time is exclusive of procedural time.
--- NOTE | 2022-03-18 21:21 | RT ---
Patient stop-bang completed. No snoring observed while watching patient sleep, states she feels tired during the days and naps. Discussed CPAP with Hospitalist but decided against as patient may be discharged tomorrow, (without a CPAP machine). Sleep study is an option after discharge.
[2022-03-19] VITALS: BP 131/71; PULSE 76; RESP 18; TEMP 36.2; O2SAT 94
[2022-03-19 05:00] VITALS: BP 135/69; PULSE 86; RESP 18; TEMP 36.2; O2SAT 95
[2022-03-19 05:59] LABS: BUN Creatinine Ratio 20.9 (6-22); Blood Urea Nitrogen 14 mg/dL (7-17); Calcium 8.4 mg/dL (8.4-10.2); Carbon Dioxide 34 mmol/L (22-32); Chloride 101 mmol/L (98-107); Estimated Glomerular Filt Rate > 60 mL/min (>60); Glucose 147 mg/dL (80-110); HEMOLYSIS < 15 (0-50); Potassium 4.3 mmol/L (3.4-5.1); Sodium 136 mmol/L (137-145)
--- NOTE | 2022-03-19 07:31 | P.DS_ITS ---
History of Present Illness History of Present Illness Date Patient Seen: 03/19/22 Time Patient Seen: 11:00 Chief complaint: Heart rate too fast- sent by Narrative: Ruby Reynolds is a 81yo F with PMH of ulcerative colitis in remission and obesity who presents from GI clinic after being found to be in A-fib RVR. She states she does not have any history of A-fib. She has no history of heart problems. At the GI clinic she was found to have a HR of 150 at rest. Was sent to the ED where A-fib was confirmed via EKG. Dilt drip started. She cannot tell she is in A-fib, but has experienced dyspnea with exertion the past 3 days. She denies history of CASEY but does snore alot per . She denies CP, SOB, abd pain, diarrhea or LE swelling. Her UC is currently in remission on azathioprine and mesalamine and she has not had rectal bleeding for several years. Discharge Providers Provider Date of admission: 03/16/22 16:28 Discharge Date: 03/19/22 Primary care physician: Apoorva Estrella PA-C Consults: 03/17/22 08:04 Consult to Dietitian, Adult Routine Comment: Reason For Exam: new diagnosis of diabetes, A1c 7.7% Discharge provider: Jeff Mckenzie DO Summary Hospital Course Discharge Diagnosis: # New-onset atrial fibrillation, RVR component resolved -HR 150's at GI clinic and sent to ED -weaned off dilt drip and well controlled HR on 30mg po dilt q6h, change to dilt XL 120 daily starting 03/18 -continue Eliquis due to [id number] of 3 -echo shows EF 60-65% with mildly dilated LV, mod mitral regurg and elevated RVSP at 42 -consider outpatient sleep study to check for CASEY as patient has risk factors -will need outpatient cardiology f/u # acute hypoxia -patient requiring 2L NC -likely secondary to asthma vs pulm HTN -restart home inhalers and loratidine -lasix 40 IV given -per home O2 eval requiring 2L NC with exertion but none at rest. Sent home with 2L NC to wear with activity. # pulmonary HTN -RVSP 42 on echo -likely secondary to undiagnosed sleep apnea -patient to have PCP refer for outpatient sleep study # new-onset type 2 diabetes -A1c returned at 7.7%, patient not a known diabetic -diabetes education consult -low dose SSI -discharged on metformin 500mg BID per patient's request and will f/u with PCP for further management # elevated BP -no h/o of HTN, BP consistently elevated at 140-170's systolic -consider starting BP meds while admitted -well controlled on oral diltiazem for A-fib # ulcerative colitis -currently in remission for past 7 years -followed by Dr. Giang GI -continue home azathioprine and mesalamine # obesity -Bariatric precautions #mild leukocytosis -WBC 11.5 -monitor for infection Hospital Course: Patient admitted for A-fib RVR which was discovered at her GI clinic appt. Initially on dilt drip but quickly weaned to po dilt at 30mg q6h. HR well c ontrolled so changed to long acting Dilt at 120mg daily. Patient tolerated the medication well and it helped control her BP as well. Hgb A1c came back at 7.7% showing new-onset type 2 diabetes. Patient elected to start metformin on discharge to get a heads start on treatment before meeting with her PCP so I sent her home on 500mg BID to titrate up to 2g BID. Echo showed mod mitral regurg, RVSP of 41 indicating pulm HTN. Patient required 2L NC during admission. PE ruled out with CTPA. Given IV lasix in attempt to wean off O2 but still required 2L with exertion so patient discharged home on this. Patient also started on po eliquis for stroke prophylaxis and discharged home on this. Exam Vital Signs (past 8 hours): - 03/18/22 01:39 03/18/22 02:26 03/18/22 05:28 Temperature 97.8 F 97.7 F Pulse Rate 85 87 Respiratory Rate 18 21 Blood Pressure 128/50 L 128/71 Pulse Oximetry 95 95 95 Oxygen Delivery Method Nasal Cannula Oxygen Flow Rate 3 3 3 Oxygen Delivery Method Nasal Cannula Oxygen Flow Rate 3 Narrative Exam Narrative: GEN: Obese female in NAD HEENT: Mucous membraines moist. PERRL PULM: Mild wheezes CV: Irregularly irregular, normal rate. No murmurs. EXT: No edema ABD: Soft and nontender NEURO: No focal deficits. SKIN: No rashes. Objective Labs Result Diagrams: 03/18/22 05:35 03/19/22 05:35 Labs: Laboratory Results - last 24 hr 03/17/22 03/18/22 03/18/22 07:42 05:35 05:35 WBC 10.3 RBC 3.61 L Hgb 11.8 L Hct 34.7 L MCV 96.3 MCH 32.7 MCHC 33.9 RDW 15.7 H Plt Count 268 Neut % (Auto) 83.8 H Lymph % (Auto) 9.0 L [place] % (Auto) 5.7 Eos % (Auto) 1.0 L Baso % (Auto) 0.5 Neut # (Auto) 8600 H Lymph # (Auto) 900 L [place] # (Auto) 600 Eos # (Auto) 100 Baso # (Auto) 0 Sodium 136 L Potassium 4.4 Chloride 102 Carbon Dioxide 28 BUN 16 Creatinine 0.71 Estimated GFR > 60 BUN/Creatinine Ratio 22.5 H Glucose 160 H Hemoglobin A1c 7.7 H Calcium 8.5 PFSH Medical History (Updated 03/16/22 @ 22:38 by Jeff Mckenzie DO) Ulcerative colitis in remission Social History household members: spouse Smoking Status: Former smoker Discharge Plan Discharge Plan Patient Disposition: Home Provider Discharge Comment: You were admitted for new-onset atrial fibrillation. You are now on a medication called diltiazem to keep your heartrate controlled. Also a blood thinner called eliquis to prevent stroke. You should have a sleep study as A-fib can sometimes be caused by undiagnosed sleep apnea. Your heart ultrasound showed mitral regurgitation and high pulmonary artery pressures so you should also you should see a inspector filters for further management of your A- fib and these echo findings. We found that you were also a diabetic so I have sent a prescription for metformin twice daily. This can cause GI upset and diarrhea but it will get better with time. You were requiring oxygen so you were sent home on 2L with exertion. Consider wearing the oxygen at night too while you sleep until you at least get your sleep study. Discharge orders & Medications Prescriptions: Continued mesalamine [Lialda] 1.2 gram tablet,delayed release (DR/EC) 2.4 g PO BID Label Comments: Take 2 tablet by mouth twice a day cetirizine 10 mg Tablet 10 mg PO DAILY azathioprine 50 mg tablet 100 mg PO DAILY Label Comments: Take 2 tablet by mouth once a day Need appointment for more refills- Dr Gaona has retired cholecalciferol (vitamin D3) 50 mcg (2,000 unit) Tablet 2,000 unit PO DAILY No Action metformin 500 mg tablet 500 mg PO BIDWMEAL Qty: 60 0RF diltiazem HCl 120 mg capsule,extended release 24hr 120 mg PO DAILY Qty: 30 0RF Eliquis 5 mg tablet 5 mg PO BID Qty: 60 0RF Follow up/Referrals: Apoorva Estrella PA-C [Primary Care Provider] - Visit Report/Discharge Packet Instructions: Type 2 Diabetes, DI for Atrial Fibrillation, DI for Diabetes Type 2, Diltiazem, Metformin, Apixaban Discharge Data Primary Care Provider: Apoorva Estrella
[2022-03-19 08:10] VITALS: BP 128/65; PULSE 74; RESP 21; TEMP 36.6; O2SAT 97
--- NOTE | 2022-03-19 08:23 | DI.RAD.S_ITS ---
PROCEDURE: XR CHEST 1V INDICATIONS: hypoxia TECHNIQUE: One view of the chest was acquired. COMPARISON: [facility], CT, CT ANGIO CHEST PE PROTOCOL, 03/17/2022, 4:21. [facility], CR, XR CHEST 1V, 03/16/2022, 14:48. FINDINGS: Surgical changes and devices: Postsurgical changes are seen at the lower cervical spine. Lungs and pleura: Mildly low lung volumes are seen bilaterally. Soft tissue is seen overlapping the left lung base, which obscures findings. Slight blunting of the right costophrenic angle may indicate a small pleural effusion. Mediastinum: Mediastinal contours appear normal. Heart size is stable. Bones and chest wall: No suspicious bony lesions. Overlying soft tissues appear unremarkable. IMPRESSION: Low lung volumes bilaterally with atelectasis of the lung bases. Small right pleural effusion. The left lung base is obscured by overlapping soft tissue structures. Dictated by: Nicko Martínez M.D. on 03/19/2022 at 9:09 Approved by: Nicko Martínez M.D. on 03/19/2022 at 9:12
[2022-03-19] MEDS: INSULIN LISPRO 100 UNIT/ML 3ML VIAL SUBCUT (08:45)
[2022-03-19] MEDS: ALBUTEROL 2.5 MG/3 ML NEB (ADULT) INH (08:50)
[2022-03-19] MEDS: BUDESONIDE 0.5 MG/2 ML NEB INH (08:50)
[2022-03-19 08:53] VITALS: PULSE 78; RESP 20; O2SAT 97
[2022-03-19] MEDS: azaTHIOprine 50 MG TABLET 100 MG PO (09:05)
[2022-03-19] MEDS: APIXABAN 5 MG TABLET PO (09:05)
[2022-03-19] MEDS: LORATADINE 10 MG TABLET PO (09:05)
[2022-03-19] MEDS: dilTIAZem CD 120 MG CAP PO (09:05)
[2022-03-19] MEDS: MESALAMINE 800 MG TABLET.DR 2400 MG PO (09:05)
--- NOTE | 2022-03-19 11:43 | DIET.CONS ---
Dietary Consultation Note Admission Date: 03/16/2022 16:28 Assessment: 81 y/o F with new onset of Afib and T2DM. Denies any FH or PMH of DM. States once prior to covid a wellness provider asked if she has ever been told she has prediabetes. Endorses wt gain over covid, though unclear how much. Endorses reduced physical activity, life was based on what to eat next, and felt possible depression due to isolation during pandemic. Recent HgA1c of 7.7%. BG managed with 0-1 u Lispro while admitted. All BG <180mg/dL (128-154 mg/dL). Very satisfied with meal portions on CCD at per report. Worries about using insulin at home ,though likely can manage with lifestyle and oral meds. States she plans to establish care with a PCP at and would like to attend diabetes education. Ht: 170.18 cm Wt: 131.995 kg BMI: 45.6 Last BM: 03/17/22 (03/17/22 07:04) MNA: Yimi Score: 20 Diet: 03/17/22 Dinner Carbohydrate Consistent Diet Diet Modifications: heart healthy Carbohydrate level: Medium (3 CHO) Bedtime snack: Yes Nutrition Percent Meal Consumed 50% 03/18/22 18:00 Percent Meal Consumed 50% 03/18/22 12:59 Labs: RBC 3.61 X10^6/uL (4.0-5.2) L 03/18/22 05:35 Hgb 11.8 g/dL (12.0-16.0) L 03/18/22 05:35 Hct 34.7 % (36-46) L 03/18/22 05:35 Creatinine 0.67 mg/dL (0.52-1.04) 03/19/22 05:35 Hemoglobin A1c 7.7 % (4.0-6.0) H 03/17/22 07:42 NT-Pro-B Natriuret Pep 606 pg/mL (<450) H 03/17/22 03:30 Nutrition Diagnosis: Nutrition and food related knowledge deficit r/t new diagnosis of DM aeb HgA1c of 7.7% Interventions: Discussed likelihood of oral meds to manage DM. If Metformin, encouraged taking with meals to reduce GI upset. Reviewed carb counting for up to 45g per meal and 15-30g at snacks. Discussed impact of physical activity on BG. Discussed goal for HgA1c and what HgA1c measures. Provided NCM carb counting handout and placemat for plate method. Encouraged balanced meals and macronutrient pairing. EER: 45g CHO per meal Monitoring/Evaluations: consult prn. OP DSME recommended. Electronically Signed by: Bren Beltran 03/19/22 11:43 Clinical Dietitian [address] [address]
[2022-03-19 12:00] VITALS: BP 114/77; PULSE 89; RESP 19; TEMP 36; O2SAT 90
--- NOTE | 2022-03-19 17:26 | PC.NURSE ---
Pt is A&Ox3, VSS, afebrile she is initially on 2 LNC, however when trialed on RA she tolerates RA well while at rest. She still has slight congestion with cough. CXR ordered this a.m. As well as home 02 eval. Pt is cleared for discharge with home 02 this afternoon with 2 LNC with activity. She verbalizes understanding of new medications, follow up instructions, as well as worsening symptoms. Her spouse at bedside is supportive and assists her with discharge. She is escorted via w/ch and home 02 tank, and all belongings for discharge home in private vehicle with at 1550.
== END 2022-03-19 15:50 | disposition home or self-care (01) | DRG 309 ==
LOC: ED 16:28 → AC 16:29
PROVIDERS: Nurse Practitioner Family; Admitting Provider Student in an Organized Health Care Education/Training Program; Emergency Provider Emergency Medicine; PCP Physician Assistant Medical; Referring Provider Internal Medicine Gastroenterology; Visit Provider Student in an Organized Health Care Education/Training Program
DX: I48.91 Unspecified atrial fibrillation (principal); Z68.42 Body mass index [BMI] 45.0-49.9, adult; K51.90 Ulcerative colitis, unspecified, without complications; E66.9 Obesity, unspecified; E11.9 Type 2 diabetes mellitus without complications; R09.02 Hypoxemia; Z20.822 Contact with and (suspected) exposure to COVID-19; Z87.891 Personal history of nicotine dependence
CPT/HCPCS: 36415; 71045; 71275; 80048; 80053; 82550; 82962; 83036; 83690; 83735; 83880; 84443; 84484; 85025; 85379; 85610; 85730; 87635; 93005; 93306; 94618; 94640; 96365; 96366; 96375; 96376; 99285; C9803; C9113; J1815; J1940; J2405; J7500; J7613; Q9967

== ENCOUNTER → 2022-04-29 13:00 | Outpatient (CLI) | payer MEDICARE, OTHER, SELFPAY ==
[2022-03-17 07:04] VITALS: BMI 45.6
--- NOTE | 2022-05-13 14:05 | DIAB.MNT ---
Initial Diabetes Medical Nutrition Therapy Assessment Name: Ruby Reynolds Date: 04/29/22 Time: 110-210p Dx: Type II Diabetes Provider: Rustam Beltran presents for initial visit with her daughter, Yanet. Ruby is familiar to this RD due to recent hospitalization and IP visit. Newly dx with HgA1c of 7.7% in March. Has established care with Dr. Easton. PMH of UC, reported in remission. States she is trying to follow the rec by Rustam to not take immodium though this is difficult for her, especially since starting Metformin. Endorses diarrhea 1-3x per day for 2 weeks. Taking metamucil, which unclear if this is helping or hurting. PMH of stress, which likely impacts UC and/or BMs. Currently kitchen is getting remodeled and there is a big whole in the floor. Using headspace jude to manage stress. States she has not had heartburn since starting Metformin. Has been using weight watchers jude for recipes, but seems to be tracking points per day instead of carbs per meal. Loves to plan meals Not checking feet Has eye appt 05/13 Has dental this week F/u with Rustam in May Diet Recall: 830-9a: eggs, eng muffin ww, banana half or potato aakash 1p: leftovers or cottage cheese with 1/3 apple and celery or sandwich and chips 4p: low carb yogurt +/- banana 6-630p: pro, veggies with rice or 1.5c potato 9p: no sugar pudding or yogurt with 2T grape nuts Beverages: 36oz water, + seltzer water Anthropometrics: Ht: 67 Wt: 271# Physical Activity: Trying to move more, getting out and shopping. Prior to dx was not leaving the house. No program. Self-Monitoring Blood Glucose: Not checking BG currently. Per EMR, has rx for supplies. Diabetes Medications: Metformin 500mg BID Pertinent Labs: 03/2022 hgA1c 7.7% Past Medical History: (Last Reviewed 04/22/22 @ 14:12 by Lexx Easton DO) Left knee pain Sleep apnea Type 2 diabetes mellitus Ulcerative colitis in remission Nutrition Rx: Carbohydrates: Meal:30-45g Snack:15-30g Nutrition Diagnosis: - Nutrition knowledge deficit r/t new dx T2DM aeb HgA1c, pt report - Physical inactivity r/t stage of change aeb pt report Intervention: This participant was very receptive. Provided appropriate educational handouts. Discussed the following topics: Completed intake assessment. Discussed barriers to care. Pathophysiology of T2DM Potential for BG checks Plate Method, impact of macronutrients on blood sugar, meal timing, carbohydrate counting, pairing macronutrients and spreading out carbohydrates for better blood glucose management Recommended servings for carbohydrates at meals and snacks Heart health nutrition Role of Physical activity Complication risk reduction: foot health, eye and dental care Created SMART goals for patient self-care and success. Goals: Keep carbs to 45g at meals Count carbs per meal, not per day Follow-up: SARAH RODRIGEZ follow-up in 3 weeks Bren Beltran RDN, [facility] Certified Diabetes Care and [place] [employer] Guide P: [phone] Thank you for this referral
== END ==
PROVIDERS: PCP Family Medicine; Referring Provider Family Medicine; Visit Provider Family Medicine
DX: E11.9 Type 2 diabetes mellitus without complications (principal); Z79.84 Long term (current) use of oral hypoglycemic drugs; Z71.3 Dietary counseling and surveillance
CPT/HCPCS: 97802

== ENCOUNTER → 2022-05-19 15:24 | Outpatient (CLI) | payer MEDICARE, OTHER, SELFPAY ==
[2022-03-17 07:04] VITALS: BMI 45.6
--- NOTE | 2022-06-03 17:14 | DIAB.MNTFU ---
Follow-up Diabetes Medical Nutrition Therapy Assessment Name: Ruby Reynolds Date: 05/19/22 Time: 335-430p Dx: Type II Diabetes Provider: Easton Ruby presents today for follow-up with , Antonino. States she is enjoying her new diabetes focused cookbooks. Reports success with small portions and satiety. States she does have some questions about eating out, especially for the holidays. Completed eye doctor appt: will have cataracts removed. Down almost 30# per report from hospitalization wt. Still managing stress with hole in kitchen floor, but overall seems to be managing well. Would like some meal ideas for breakfast and lunch. Anthropometrics: Ht: 67 Wt: 269.6# reported Physical Activity: Not discussed today Self-Monitoring Blood Glucose: All FBG <130mg/dL. No pc readings for review. Diabetes Medications: Metformin 500mg BID Pertinent Labs: 03/2022 hgA1c 7.7% Past Medical History: (Last Reviewed 06/03/22 @ 10:47 by Lexx Easton DO) Exercise intolerance Left knee pain Sleep apnea Type 2 diabetes mellitus Ulcerative colitis in remission Nutrition Rx: Carbohydrates: Meal:30-45g Snack:15-30g Nutrition Diagnosis: - Nutrition knowledge deficit r/t new dx T2DM aeb HgA1c, pt report - improved - Physical inactivity r/t stage of change aeb pt report - in progress Intervention: This participant was very receptive. Provided appropriate educational handouts. Discussed the following topics: Blood sugar review and trends. Plate Method, impact of macronutrients on blood sugar, meal timing, carbohydrate counting, pairing macronutrients and spreading out carbohydrates for better blood glucose management Heart health nutrition: fats, fiber, and sodium Eating out tips Meal planning and carb counting review Created SMART goals for patient self-care and success. Goals: Keep carbs to 45g at meals - met Count carbs per meal, not per day- met Implement meal plan ideas- new Check some pc BG readings- new Follow-up: SARAH RODRIGEZ follow-up in 3-4 weeks Bren Beltran RDN, [facility] Certified Diabetes Care and Product Handler P: [phone] Thank you for this referral
== END ==
PROVIDERS: PCP Family Medicine; Referring Provider Family Medicine; Visit Provider Family Medicine
DX: E11.9 Type 2 diabetes mellitus without complications (principal); Z79.84 Long term (current) use of oral hypoglycemic drugs; Z71.3 Dietary counseling and surveillance
CPT/HCPCS: 97803

== ENCOUNTER → 2022-06-17 08:38 | Outpatient (CLI) | payer MEDICARE, OTHER, SELFPAY ==
[2022-03-17 07:04] VITALS: BMI 45.6
--- NOTE | 2022-06-30 11:24 | PM.CARDMON.1 ---
Dairy Chemist Report Referral & Results Date Patient Seen: 06/17/22 Requesting provider: Lexx Easton Indication: I48.19 Duration of monitoring (days): 8 Diary information: There were no patient events to review Data: Minimum heart rate was 64 beats per minute at 10:16 on 06/22/2022 Maximum heart rate was 203 beats per minute at 15:05 on 06/24/2022 during a run of ventricular tachycardia Less than 1% of identified beats were ventricular ectopic in origin which would classify them as rare Patient was continuously in atrial fibrillation during this study with heart rate ranging between 64 and 162 beats per minute There was 1 run of nonsustained ventricular tachycardia that was 15 beats in duration at a rate of 203 beats per minute There were no pauses of 3 seconds or longer identified on this study Impression: 7+ day quality assurance monitor final demonstrating atrial fibrillation with above heart rate ranges Single episode ventricular tachycardia 15 beats in duration Clinical correlation suggested
== END ==
PROVIDERS: PCP Family Medicine; Referring Provider Family Medicine; Visit Provider Family Medicine
DX: I48.91 Unspecified atrial fibrillation (principal)
CPT/HCPCS: 93242; 93248

== ENCOUNTER → 2022-07-29 10:03 | Outpatient (CLI) | payer MEDICARE, OTHER, SELFPAY ==
[2022-03-17 07:04] VITALS: BMI 45.6
[2022-07-29 11:02] LABS: COVID19 -Nasal RAPID Negative (Negative)
--- NOTE | 2022-07-30 19:39 | DI.NM.S_ITS ---
DATE OF SERVICE: 07/29/2022 PROCEDURE PERFORMED: Aborted myocardial nuclear perfusion imaging study. ORDERING PROVIDER: Dr. Jamee Myles. INDICATIONS: The patient is a 81-year-old female with a history of atrial fibrillation. FINDINGS: The patient was scheduled for a nuclear perfusion stress test and was injected with 25.5 millicuries of technetium-99m Myoview at rest with anticipation of subsequently performing a stress test. However, after injection of isotope, the patient was placed under the camera but reported that she could not tolerate this and asked that the study be aborted. Therefore, no images were able to be obtained. IMPRESSION: Aborted nuclear perfusion imaging study without any data obtained. Consider stress echocardiography if further evaluation is warranted. Ruby Reynolds - Xin/michael doc#: [id number]/job#: [id number] dd: 07/30/2022 07:51:00 dt: 07/30/2022 19:23:00 DICTATING /COPIES TO: Robert Rangel MD COPIES MNE: WANG;
== END ==
PROVIDERS: PCP Family Medicine; Referring Provider Internal Medicine Cardiovascular Disease; Visit Provider Internal Medicine Cardiovascular Disease
DX: I48.19 Other persistent atrial fibrillation (principal); Z20.822 Contact with and (suspected) exposure to COVID-19
CPT/HCPCS: 78452; 87635; 93016; 93017; 93018; A9502; J2785

== ENCOUNTER 2022-08-08 12:50 | Inpatient (IN) | payer MEDICARE, OTHER, SELFPAY ==
[2022-03-17 07:04] VITALS: BMI 45.6
[2022-08-08] VITALS (26 sets, daily range): BP systolic 122–166; BP diastolic 73–112; PULSE 65–126; RESP 16–27; TEMP 35.7–36.5; O2SAT 89–95; BMI 44.6
--- NOTE | 2022-08-08 13:30 | DI.RAD.S_ITS ---
PROCEDURE: XR CHEST 1V INDICATIONS: Shortness of breath TECHNIQUE: One view of the chest was acquired. COMPARISON: [facility], CR, XR CHEST 1V, 03/16/2022, 14:48. [facility], CT, CT ANGIO CHEST PE PROTOCOL, 03/17/2022, 4:21. [facility], CR, XR CHEST 1V, 03/19/2022, 8:22. FINDINGS: Surgical changes and devices: Cervical fusion hardware.. Lungs and pleura: Patchy bibasilar atelectasis. No pleural effusions or pneumothorax. Mediastinum: Mediastinal contours appear normal. Heart size is normal. Epicardial fat seen on the previous CT exaggerates the perceived transverse diameter of the heart. Cardiac silhouette is similar to the previous chest film, which was taken on the same date as the previous CT angiogram of the chest. Bones and chest wall: No suspicious bony lesions. Overlying soft tissues appear unremarkable. IMPRESSION: Patchy bibasilar atelectasis. Dictated by: Arun Haddad M.D. on 08/08/2022 at 14:02 Approved by: Arun Haddad M.D. on 08/08/2022 at 14:03
--- NOTE | 2022-08-08 13:30 | ED.SOB ---
HPI - SOB/Dyspnea General Chief Complaint: Shortness of Breath/Dyspnea Stated Complaint: thinks she has CHF /legs swollen/SOB Time Seen by Provider: 08/08/22 12:57 History of Present Illness HPI Narrative: 81-year-old female nonsmoker with history of atrial fibrillation on Cardizem and Eliquis presents with family in the chief complaint of increasing shortness of breath over the past month or so. She states that she becomes increasingly short of breath with exertion and can no longer lie flat as she becomes too short of breath. She is noticed about a 10 lb weight gain in the past few weeks and states that her bilateral lower extremities have become significantly swollen. She denies missing any of her medications. She is not dizzy nor weak or lightheaded. She states that she has seen her cardiology group and they had discussions about cardioversion but apparently wanted to pursue a stress test prior. She was unable to use the treadmill and was too short of breath lying flat to do the nuclear stress test. Related Data Home Medications Medication Instructions Recorded Confirmed azathioprine 50 mg tablet 100 mg PO DAILY 03/16/22 06/16/22 cetirizine 10 mg tablet 10 mg PO DAILY 03/16/22 06/16/22 cholecalciferol (vitamin D3) 50 2,000 unit PO DAILY 03/16/22 06/16/22 mcg (2,000 unit) tablet mesalamine 1.2 gram tablet,delayed 2.4 g PO BID 03/16/22 06/16/22 release (Lialda) Previous Rx's Medication Instructions Recorded blood sugar diagnostic (Accutrend #50 ea 04/22/22 Glucose test strips) blood-glucose meter (Accu-Chek #1 ea 04/22/22 Guide Glucose Meter) lancets (Accu-Chek Softclix #100 ea 04/22/22 Lancets) apixaban 5 mg tablet (Eliquis) See Rx Instructions .Route 07/14/22 .COMPLEX #180 tabs diltiazem HCl 120 mg See Rx Instructions .Route 07/14/22 capsule,extended release 24 hr .COMPLEX #90 caps metformin 500 mg tablet See Rx Instructions .Route 07/14/22 .COMPLEX #180 tabs Allergies Allergy/AdvReac Type Severity Reaction Status Date / Time codeine AdvReac Verified 06/16/22 15:16 morphine AdvReac Verified 06/16/22 15:16 Review of Systems Review of Systems Narrative: GENERAL: See HPI HEENT: Denies sinus pain, ear pain, sore throat, difficulty swallowing, dizziness. RESPIRATORY: See HPI CARDIOVASCULAR: See HPI GASTROINTESTINAL: Denies nausea, vomiting, abdominal pain, diarrhea, constipation, melena. : Denies dysuria, frequency, incontinence, hematuria, urinary retention. MUSCULOSKELETAL: denies weakness, joint pain, or bony pain SKIN: Denies rash, skin lesions, or other NEUROLOGIC: Denies weakness, headache, numbness, change in speech, confusion, seizures, incoordination. PSYCHIATRIC: No concerning psychosocial issues. 12 point review of systems is negative except for those stated above Patient History Medical History Exercise intolerance Left knee pain Sleep apnea Type 2 diabetes mellitus Ulcerative colitis in remission Social History household members: spouse Smoking Status: Former smoker Smoking Status: Former smoker Exam Narrative Exam Narrative: GENERAL: [81] year old patient appears stated age. Well-developed patient, in mild distress. HEAD: Atraumatic. Normocephalic. EYES: Pupils equal round and reactive. Extraocular motions intact. No scleral icterus. No injection or drainage. ENT: Nose without bleeding, purulent drainage. Throat without erythema, tonsillar hypertrophy or exudate. Airway patent. NECK: Trachea midline. Non tender CARDIOVASCULAR: Tachycardic and irregular rhythm without murmurs, gallops, or rubs. RESPIRATORY: faint crackles in bilateral bases GASTROINTESTINAL: Abdomen soft, non-tender, nondistended. EXTREMITIES: 2+ pitting edema bilateral lower extremities BACK: Nontender without deformity or crepitance. No flank tenderness. NEURO: AOx3. SKIN: No rash or erythema of visible areas Initial Vital Signs Initial Vital Signs: Vital Signs Temperature 97.5 F L 08/08/22 12:57 Pulse Rate 125 H 08/08/22 12:57 Respiratory Rate 22 08/08/22 12:57 Blood Pressure 133/98 H 08/08/22 12:57 Pulse Oximetry 95 08/08/22 12:57 Oxygen Delivery Method 08/08/22 12:57 Course Orders Ordered: ED Orders 08/08/22 13:25 Complete Blood Count AUTO DIFF Stat Comprehensive Metabolic Panel Stat Covid-19 + FLU A/B + RSV - PCR Stat Lactate (Lactic Acid) Stat NT-proBNP (BNP-Adult 18+) Stat Prothrombin Time INR Stat Troponin I Stat 08/08/22 13:30 XR chest 1V Stat EKG-12 Lead Stat Measure peak expiratory flow ONCE RT Consult Eval and Treat NOW Discontinued Medications Furosemide (Furosemide 40 Mg/4 Ml Vial) 40 mg IV NOW ONE Stop: 08/08/22 15:07 Last Admin: 08/08/22 15:33 Dose: 40 mg Documented By: SB Metoprolol Succinate (Metoprolol Er 50 Mg Tablet) 50 mg PO NOW ONE Stop: 08/08/22 14:42 Last Admin: 08/08/22 14:51 Dose: 50 mg Documented By: SB Consultations Consultation #1: Discussed with on-call lead mechanical engineer (Dr. Quinteros). She has reviewed Cardiology notes and suggest that there are some discrepancies between patient's report and that which is noted in the chart. She states that she was to stop her Cardizem and start taking metoprolol succinate 25 mg p.o. b.i.d. but patient states that she has not been doing it that way and has been taking diltiazem as well. After lengthy discussion Dr. Quinteros and I sure the opinion that the patient is not an appropriate candidate for cardioversion and will require hospitalization for diuresis and stabilization of rate-controlling meds, she will need another echocardiogram as she is at an increased risk for cardiomyopathy given extended rapid AFib. Vital Signs Vital signs: Vital Signs - 8 hr 08/08/22 12:57 08/08/22 14:51 08/08/22 13:38 Temperature 97.5 F L Pulse Rate 125 H 126 H 126 H Respiratory Rate 22 27 H Blood Pressure 133/98 H 131/81 Pulse Oximetry 95 94 Oxygen Delivery Method Room Air 08/08/22 14:00 08/08/22 14:00 08/08/22 14:16 Temperature Pulse Rate 121 H Respiratory Rate 23 Blood Pressure 155/112 H 133/79 Pulse Oximetry 94 Oxygen Delivery Method 08/08/22 14:16 08/08/22 14:30 08/08/22 14:30 Temperature Pulse Rate 110 H 114 H Respiratory Rate 20 22 Blood Pressure 131/81 Pulse Oximetry 93 94 Oxygen Delivery Method 08/08/22 15:00 08/08/22 15:00 08/08/22 15:33 Temperature Pulse Rate 104 H 124 H Respiratory Rate 23 Blood Pressure 135/74 Pulse Oximetry 93 Oxygen Delivery Method Room Air 08/08/22 15:37 08/08/22 15:37 08/08/22 16:00 Temperature Pulse Rate 101 H 119 H Respiratory Rate 23 26 H Blood Pressure 153/90 H Pulse Oximetry 95 Oxygen Delivery Method MDM - SOB/Dyspnea Lab Data Result diagrams: 08/08/22 13:25 08/08/22 13:25 Labs: Lab Results 08/08/22 08/08/22 08/08/22 Range/Units 13:25 13:25 13:25 WBC 11.6 H (4.5-11.0) X10^3/uL RBC 4.31 (4.0-5.2) X10^6/uL Hgb 12.7 (12.0-16.0) g/dL Hct 39.6 (36-46) % MCV 91.9 (80-100) fL MCH 29.5 (26-34) PG MCHC 32.1 (30-36) % RDW 15.9 H (11.6-14.8) % Plt Count 259 (150-400) X10^3/uL Neut % (Auto) 83.4 H (50-75) % Lymph % (Auto) 9.7 L (25-40) % [place] % (Auto) 4.9 (3-14) % Eos % (Auto) 1.2 L (2-4) % Baso % (Auto) 0.8 (0-2) % Neut # (Auto) 9700 H (5764-3125) /uL Lymph # (Auto) 1100 (4633-0946) /uL [place] # (Auto) 600 (0-900) /uL Eos # (Auto) 100 (0-450) /uL Baso # (Auto) 100 (0-100) /uL PT 28.6 H (10.1-12.7) SECONDS INR 2.5 H (0.9-1.3) Sodium 136 L (137-145) mmol/L Potassium 4.1 (3.4-5.1) mmol/L Chloride 101 (98-107) mmol/L Carbon Dioxide 25 (22-32) mmol/L BUN 15 (7-17) mg/dL Creatinine 0.57 (0.52-1.04) mg/dL Estimated GFR > 60 (>60) mL/min BUN/Creatinine Ratio 26.3 H (6-22) Glucose 128 H (80-110) mg/dL Lactate (0.7-2.1) mmol/L Calcium 9.1 (8.4-10.2) mg/dL Total Bilirubin 1.0 (0.2-1.3) mg/dL AST 29 (14-36) IU/L ALT 28 (<35) IU/L Alkaline Phosphatase 97 (38-126) U/L Troponin I < 0.012 (0.01-0.034) ng/mL NT-Pro-B Natriuret Pep 2270 H (<450) pg/mL Total Protein 7.0 (6.3-8.2) g/dL Albumin 3.8 (3.5-5.0) g/dL Globulin 3.2 (1.7-4.1) g/dL Albumin/Globulin Ratio 1.2 (1.0-2.8) SARS-CoV-2 (PCR) (Negative) Influenza A (RT-PCR) (NEGATIVE) Influenza B (RT-PCR) (NEGATIVE) RSV (PCR) (Negative) 08/08/22 08/08/22 Range/Units 13:25 13:25 WBC (4.5-11.0) X10^3/uL RBC (4.0-5.2) X10^6/uL Hgb (12.0-16.0) g/dL Hct (36-46) % MCV (80-100) fL MCH (26-34) PG MCHC (30-36) % RDW (11.6-14.8) % Plt Count (150-400) X10^3/uL Neut % (Auto) (50-75) % Lymph % (Auto) (25-40) % [place] % (Auto) (3-14) % Eos % (Auto) (2-4) % Baso % (Auto) (0-2) % Neut # (Auto) (1780-7536) /uL Lymph # (Auto) (3897-6257) /uL [place] # (Auto) (0-900) /uL Eos # (Auto) (0-450) /uL Baso # (Auto) (0-100) /uL PT (10.1-12.7) SECONDS INR (0.9-1.3) Sodium (137-145) mmol/L Potassium (3.4-5.1) mmol/L Chloride (98-107) mmol/L Carbon Dioxide (22-32) mmol/L BUN (7-17) mg/dL Creatinine (0.52-1.04) mg/dL Estimated GFR (>60) mL/min BUN/Creatinine Ratio (6-22) Glucose (80-110) mg/dL Lactate 1.2 (0.7-2.1) mmol/L Calcium (8.4-10.2) mg/dL Total Bilirubin (0.2-1.3) mg/dL AST (14-36) IU/L ALT (<35) IU/L Alkaline Phosphatase (38-126) U/L Troponin I (0.01-0.034) ng/mL NT-Pro-B Natriuret Pep (<450) pg/mL Total Protein (6.3-8.2) g/dL Albumin (3.5-5.0) g/dL Globulin (1.7-4.1) g/dL Albumin/Globulin Ratio (1.0-2.8) SARS-CoV-2 (PCR) Negative (Negative) Influenza A (RT-PCR) Flu a negative (NEGATIVE) Influenza B (RT-PCR) Flu b negative (NEGATIVE) RSV (PCR) Negative (Negative) Imaging Data Chest x-ray: Radiologist's Impression: [address] [address] XRay Report Signed Patient: Ruby Reynolds MR#: [id number] : 1940 Acct:[id number] Age/Sex: 81 / F Date of Service: 08/08/22 Loc: ED Accession Number: [id number] ?? Procedure: XR chest 1V Ordering Provider: Reed Pagan D.O. PROCEDURE:? XR CHEST 1V ? INDICATIONS:? Shortness of breath ? TECHNIQUE:? One view of the chest was acquired.? ? COMPARISON:? [facility], CR, XR CHEST 1V, 03/16/2022, 14:48.? [facility], CT, CT ANGIO CHEST PE PROTOCOL, 03/17/2022, 4:21.? [facility], CR, XR CHEST 1V, 03/19/2022, 8:22. ? FINDINGS:? ? Surgical changes and devices:? Cervical fusion hardware..? ? Lungs and pleura:? Patchy bibasilar atelectasis.? No pleural effusions or pneumothorax.? ? Mediastinum:? Mediastinal contours appear normal.? Heart size is normal.? Epicardial fat seen on the previous CT exaggerates the perceived transverse diameter of the heart.? Cardiac silhouette is similar to the previous chest film, which was taken on the same date as the previous CT angiogram of the chest. ? Bones and chest wall:? No suspicious bony lesions.? Overlying soft tissues appear unremarkable.? ? IMPRESSION:? Patchy bibasilar atelectasis. ? ? Dictated by: Arun Haddad M.D. on 08/08/2022 at 14:02 ? ? Approved by: Arun Haddad M.D. on 08/08/2022 at 14:03? Discharge Plan Departure Patient Disposition: Admitted As Inpatient Clinical Impression: Atrial fibrillation with rapid ventricular response, CHF (congestive heart failure) Prescriptions: No Action Eliquis 5 mg tablet See Rx Instructions .ROUTE .COMPLEX Qty: 180 1RF Dose Instruction: TAKE 1 TABLET TWICE A DAY Rx Instructions: TAKE 1 TABLET TWICE A DAY diltiazem HCl 120 mg capsule,extended release 24hr See Rx Instructions .ROUTE .COMPLEX Qty: 90 1RF Dose Instruction: TAKE 1 CAPSULE DAILY Rx Instructions: TAKE 1 CAPSULE DAILY metformin 500 mg tablet See Rx Instructions .ROUTE .COMPLEX Qty: 180 1RF Dose Instruction: TAKE 1 TABLET TWICE A DAY WITH MEALS Rx Instructions: TAKE 1 TABLET TWICE A DAY WITH MEALS (DME) blood-glucose meter [Accu-Chek Guide Glucose Meter] Misc See Rx Instructions .Route Qty: 1 0RF Rx Instructions: As directed (DME) lancets [Accu-Chek Softclix Lancets] Misc See Rx Instructions .Route Qty: 100 2RF Rx Instructions: As directed (DME) Accutrend Glucose test strips Strip See Rx Instructions .Route Qty: 50 2RF Rx Instructions: As directed mesalamine [Lialda] 1.2 gram tablet,delayed release (DR/EC) 2.4 g PO BID Label Comments: Take 2 tablet by mouth twice a day cetirizine 10 mg Tablet 10 mg PO DAILY azathioprine 50 mg tablet 100 mg PO DAILY Label Comments: Take 2 tablet by mouth once a day Need appointment for more refills- Dr Gaona has retired cholecalciferol (vitamin D3) 50 mcg (2,000 unit) Tablet 2,000 unit PO DAILY Referrals: Lexx Easton, [Primary Care Provider] -
--- NOTE | 2022-08-08 13:45 | PC.NURSE ---
Pt reports oxygen use at home on and off and at unknown rate.
[2022-08-08 13:48] LABS: Add Manual Diff / Slide Review NO; Basophils Absolute Auto 100 /uL (0-100); Basophils Percent Auto 0.8 % (0-2); Eosinophils Absolute Auto 100 /uL (0-450); Eosinophils Percent Auto 1.2 % (2-4); Hematocrit 39.6 % (36-46); Hemoglobin 12.7 g/dL (12.0-16.0); Lymphocytes Absolute Auto 1100 /uL (1100-4500); Lymphocytes Percent Auto 9.7 % (25-40); Mean Corpuscular HGB Conc 32.1 % (30-36); Mean Corpuscular Hemoglobin 29.5 PG (26-34); Mean Corpuscular Volume 91.9 fL (80-100); Monocytes Absolute Auto 600 /uL (0-900); Monocytes Percent Auto 4.9 % (3-14); Neutrophils Absolute Auto 9700 /uL (1500-7000); Neutrophils Percent Auto 83.4 % (50-75); Platelet Count 259 X10^3/uL (150-400); Red Blood Cell Count 4.31 X10^6/uL (4.0-5.2); Red Cell Distribution Width 15.9 % (11.6-14.8); White Blood Cell Count 11.6 X10^3/uL (4.5-11.0)
[2022-08-08 13:49] LABS: INR 2.5 (0.9-1.3); Prothrombin Time 28.6 SECONDS (10.1-12.7)
[2022-08-08 13:58] LABS: Lactate (Lactic Acid) 1.2 mmol/L (0.7-2.1)
[2022-08-08 13:59] LABS: Alanine Aminotransferase 28 IU/L (<35); Albumin 3.8 g/dL (3.5-5.0); Albumin Globulin Ratio 1.2 (1.0-2.8); Alkaline Phosphatase 97 U/L (38-126); Aspartate Aminotransferase 29 IU/L (14-36); BUN Creatinine Ratio 26.3 (6-22); Blood Urea Nitrogen 15 mg/dL (7-17); Calcium 9.1 mg/dL (8.4-10.2); Carbon Dioxide 25 mmol/L (22-32); Chloride 101 mmol/L (98-107); Estimated Glomerular Filt Rate > 60 mL/min (>60); Globulin 3.2 g/dL (1.7-4.1); Glucose 128 mg/dL (80-110); HEMOLYSIS < 15 (0-50); Potassium 4.1 mmol/L (3.4-5.1); Sodium 136 mmol/L (137-145)
[2022-08-08 14:11] LABS: NT-proBNP (BNP-Adult 18+) 2270 pg/mL (<450); Troponin I < 0.012 ng/mL (0.01-0.034)
[2022-08-08 14:25] LABS: Influenza A - CEPHEID Flu A NEGATIVE (NEGATIVE); Influenza B - CEPHEID Flu B NEGATIVE (NEGATIVE); Respiratory Syncytial Virus Negative (Negative)
[2022-08-08 14:32] LABS: COVID-19 CEPHEID 4-PLEX PCR Negative (Negative)
[2022-08-08] MEDS: METOPROLOL ER 50 MG TABLET PO ×2 (14:51→21:21)
[2022-08-08] MEDS: FUROSEMIDE 40 MG/4 ML VIAL IV (15:33)
--- NOTE | 2022-08-08 17:16 | PC.NURSE ---
Pt assisted to bedside commode. This RN noticed a small smear of bright red blood on the pts sheet near where she was sitting. Asked pt if she has hemorrhoids and she said, yes. Pt also stated she has Ulcerative colitis. Pt then later says, No. I don't have hemorrhoids. Pt said it felt uncomfortable when they placed the purewick. This RN examined pt's hemant area and did not see any tears or lacerations. Admitting hospitalist aware.
--- NOTE | 2022-08-08 18:55 | PM.HP.1 ---
History of Present Illness History of Present Illness Date Patient Seen: 08/08/22 Time Patient Seen: 18:30 Chief complaint: thinks she has CHF /legs swollen/SOB Narrative: Ms. Reynolds is a 81W with PMH of atrial fibrillation who presents to the hospital with tachycardia and shortness of breath. She was admitted to the hospital in March 2022, diagnosed with afib and ultimately discharged on rate control medications and eliquis. She followed up with cardiology who prescribed a different medication, she was apparently supposed to change medications. She thought she should be taking both. She has been checking herself at home and has at least a month of tachycardia, worsening shortness of breath, exertional dyspnea, lower leg swelling and 15lb weight gain. In the ED, workup was done, vitals notable for tachycardia. Labs notable for WBC 11.6, INR 2.5. BNP 2270. Trop negative. INR 2.5. EKG showed afib with rapid rate. Chest xray patchy bibasilr atelectasis. Lasix and metoprolol were given and she was admitted for further treatment. Family history: no history of heart disease Patient History Medical History Exercise intolerance Left knee pain Sleep apnea Type 2 diabetes mellitus Ulcerative colitis in remission Family & Social History Social History: household members spouse Safety & Behavioral: Feels Safe in Current Yes Environment Been Physically Hurt or No Threatened By a Person Tobacco & Substance use: Smoking Status Former smoker Meds Home Medications and Allergies Home Medications Medication Instructions Recorded Confirmed Type azathioprine 50 mg tablet 100 mg PO DAILY 03/16/22 06/16/22 History cetirizine 10 mg tablet 10 mg PO DAILY 03/16/22 06/16/22 History cholecalciferol (vitamin D3) 50 2,000 unit PO DAILY 03/16/22 06/16/22 History mcg (2,000 unit) tablet mesalamine 1.2 gram tablet,delayed 2.4 g PO BID 03/16/22 06/16/22 History release (Lialda) blood sugar diagnostic (Accutrend #50 ea 04/22/22 06/16/22 Rx Glucose test strips) blood-glucose meter (Accu-Chek #1 ea 04/22/22 06/16/22 Rx Guide Glucose Meter) lancets (Accu-Chek Softclix #100 ea 04/22/22 06/16/22 Rx Lancets) apixaban 5 mg tablet (Eliquis) See Rx Instructions .Route 07/14/22 Rx .COMPLEX #180 tabs diltiazem HCl 120 mg See Rx Instructions .Route 07/14/22 Rx capsule,extended release 24 hr .COMPLEX #90 caps metformin 500 mg tablet See Rx Instructions .Route 07/14/22 Rx .COMPLEX #180 tabs Allergies Allergy/AdvReac Type Severity Reaction Status Date / Time codeine AdvReac Verified 06/16/22 15:16 morphine AdvReac Verified 06/16/22 15:16 Review of Systems Review of Systems Narrative: 14 systems reviewed and negative aside from what is noted in HPI Exam Vital Signs (past 8 hours): - 08/08/22 12:57 08/08/22 14:51 08/08/22 13:38 Temperature 97.5 F L Pulse Rate 125 H 126 H 126 H Respiratory Rate 22 27 H Blood Pressure 133/98 H 131/81 Pulse Oximetry 95 94 Oxygen Delivery Method Room Air 08/08/22 14:00 08/08/22 14:00 08/08/22 14:16 Temperature Pulse Rate 121 H Respiratory Rate 23 Blood Pressure 155/112 H 133/79 Pulse Oximetry 94 Oxygen Delivery Method 08/08/22 14:16 08/08/22 14:30 08/08/22 14:30 Temperature Pulse Rate 110 H 114 H Respiratory Rate 20 22 Blood Pressure 131/81 Pulse Oximetry 93 94 Oxygen Delivery Method 08/08/22 15:00 08/08/22 15:00 08/08/22 15:33 Temperature Pulse Rate 104 H 124 H Respiratory Rate 23 Blood Pressure 135/74 Pulse Oximetry 93 Oxygen Delivery Method Room Air 08/08/22 15:37 08/08/22 15:37 08/08/22 16:00 Temperature Pulse Rate 101 H 119 H Respiratory Rate 23 26 H Blood Pressure 153/90 H Pulse Oximetry 95 Oxygen Delivery Method 08/08/22 16:07 08/08/22 16:30 08/08/22 16:30 Temperature Pulse Rate 96 H 96 H Respiratory Rate 16 Blood Pressure 153/90 H 166/86 H Pulse Oximetry 93 Oxygen Delivery Method 08/08/22 17:00 08/08/22 17:03 08/08/22 17:03 Temperature Pulse Rate 97 H 97 H Respiratory Rate 23 Blood Pressure 140/79 Pulse Oximetry 94 93 Oxygen Delivery Method 08/08/22 18:09 Temperature 97.7 F Pulse Rate Respiratory Rate Blood Pressure Pulse Oximetry Oxygen Delivery Method Oxygen Delivery Method Room Air Narrative Exam Narrative: GEN: short of breath with movement HEENT: moist mucuos membranes, PERRL NECK: trachea midline, no JVD PULM: clear bilaterally, no wheezes, rhonchi, rales CV: irregular, tachycardic ABD: soft, nontender, nondistended, no organomegaly EXT: warm and well perfused, with no edema NEURO: awake, alert, oriented, no focal deficits Objective Labs Result Diagrams: 08/08/22 13:25 08/08/22 13:25 Labs: Laboratory Results - last 24 hr 08/08/22 08/08/22 08/08/22 13:25 13:25 13:25 WBC 11.6 H RBC 4.31 Hgb 12.7 Hct 39.6 MCV 91.9 MCH 29.5 MCHC 32.1 RDW 15.9 H Plt Count 259 Neut % (Auto) 83.4 H Lymph % (Auto) 9.7 L [place] % (Auto) 4.9 Eos % (Auto) 1.2 L Baso % (Auto) 0.8 Neut # (Auto) 9700 H Lymph # (Auto) 1100 [place] # (Auto) 600 Eos # (Auto) 100 Baso # (Auto) 100 PT 28.6 H INR 2.5 H Sodium 136 L Potassium 4.1 Chloride 101 Carbon Dioxide 25 BUN 15 Creatinine 0.57 Estimated GFR > 60 BUN/Creatinine Ratio 26.3 H Glucose 128 H Lactate Calcium 9.1 Total Bilirubin 1.0 AST 29 ALT 28 Alkaline Phosphatase 97 Troponin I < 0.012 NT-Pro-B Natriuret Pep 2270 H Total Protein 7.0 Albumin 3.8 Globulin 3.2 Albumin/Globulin Ratio 1.2 SARS-CoV-2 (PCR) Influenza A (RT-PCR) Influenza B (RT-PCR) RSV (PCR) 08/08/22 08/08/22 13:25 13:25 WBC RBC Hgb Hct MCV MCH MCHC RDW Plt Count Neut % (Auto) Lymph % (Auto) [place] % (Auto) Eos % (Auto) Baso % (Auto) Neut # (Auto) Lymph # (Auto) [place] # (Auto) Eos # (Auto) Baso # (Auto) PT INR Sodium Potassium Chloride Carbon Dioxide BUN Creatinine Estimated GFR BUN/Creatinine Ratio Glucose Lactate 1.2 Calcium Total Bilirubin AST ALT Alkaline Phosphatase Troponin I NT-Pro-B Natriuret Pep Total Protein Albumin Globulin Albumin/Globulin Ratio SARS-CoV-2 (PCR) Negative Influenza A (RT-PCR) Flu a negative Influenza B (RT-PCR) Flu b negative RSV (PCR) Negative Assessment & Plan Assessment & Plan narrative: 1. Acute CHF exacerbation -suspect etiology could be induced from tachcyardia from uncontrolled afib -check ECHO -treat afib as below -IV lasix BID -low salt diet, fluid restriction -loan auditor consult about CHF -goal 2-3L net negative 2. Atrial fibrillation with RVR -for now trial control with metoprolol solely, start 50mg XL BID -increase as able -will add additional meds if difficult to control -ECHO as above -continue apixaban -hold off on diltiazem for now 3. Type 2 Diabetes -continue metformin -insulin sliding scale CODE: Full Proxy: Daron Reynolds, I have utilized all available resources to reconcile the patient's home medications. Time Spent With Patient Critical Care time: I spent a total of [] minutes of critical care time on this patient's care today; this time is exclusive of procedural time.
--- NOTE | 2022-08-08 20:39 | DI.ECHO.S_ITS ---
[facility] +---------+ : : [address] [address] : : : : [id number] : : : : Phone: [phone]---------+ Echocardiogram Report + + :Name: SUBHASH BELLAMY Study Date: 08/09/2022 Height: 67 in : :[facility] ReadingLocation: Weight: 284 lb : : Gender: Female BSA: 2.3 m2 : :: 1940 Age: 81 yrs BP: 128/72 mmHg: :Reason For Study: CONGESTIVE HEART FAILURE : :Ordering Physician: YVETTE, : :BLAYNE Performed By: Jeanne Horner : :Referring: BLAYNE CRAWFORD : + + Interpretation Summary Afib with controlled rate. Normal LV size and wall thickness. EF is 40-45%. Moderate MR in the setting of normal leaflets. Moderate ccentral tricuspid regurgitation. Severe biatrial enlargement; borderline RV enlargement with normal RV function. Estimated PA systolic pressure is 51 mm Hg assuming RA pressure of 15 mm Hg. There is D shaped LV in systole and diastole which in the right clinical setting could be due to RV pressure overload Compared to prior study afib is new. Cardiomyopathy is new. RV pressure overload is new. TR severity is worse. Procedure: A two-dimensional transthoracic echocardiogram with color flow and Doppler was performed. The study quality was technically adequate. Comparison is made with the echocardiogram of 03/17/2022. The patient was in atrial fibrillation with heart rates between 89-102 bpm during the exam. Left Ventricle: The left ventricle is normal in size. There is mild concentric left ventricular hypertrophy. Left ventricular ejection fraction is estimated to be 40 +/- 5%. The interventricular septum is flattened, consistent with a right ventricular pressure/volume condition. Diastolic function could not be accurately assessed due to atrial fibrillation. Right Ventricle: The right ventricle is borderline dilated. Atria: The left atrium is severely dilated. The right atrium is moderate to severely dilated. There is no Doppler evidence for an interatrial shunt. Mitral Valve: There is mild mitral annular calcification. The mitral valve leaflets appear to open well. There is moderate mitral regurgitation. Aortic Valve: The aortic valve is trileaflet. The aortic valve is slightly calcified. The aortic valve opens well. There is no aortic valve stenosis. There is trace aortic regurgitation. Tricuspid Valve: The tricuspid valve leaflets are thin and pliable. There is moderate tricuspid regurgitation. The right ventricular systolic pressure is estimated to be at least 51 mmHg based on an estimated right atrial pressure of 15 mm Hg. Pulmonic Valve: The pulmonic valve leaflets are thin and pliable; valve motion is normal. There is trace pulmonic regurgitation. Great Vessels: The aortic root is normal size. The dimensions of the ascending aorta are normal. The IVC is dilated (diameter is greater than 2.1 cm) and it collapses less than 50% with a sniff. This suggests a high right atrial pressure of 15 mm Hg. Pericardium/ Pleura There is no pericardial effusion. There is no pleural effusion. MMode/2D Measurements & Calculations LVIDd: 4.9 cm LVOT diam: 2.2 cm LVIDs: 3.7 cm Ao root diam: 3.3 cm FS: 25.3 % asc Aorta Diam: 3.4 cm EPSS: 1.3 cm Ao Arch Diam (Prox Trans): 2.6 cm IVSd: 0.98 cm LVPWd: 1.1 cm LV gonzalez. diameter/BSA (cm/m^2): 2.1 LV sys. diameter/BSA (cm/m^2): 1.6 LA A2 area: 34.7 cm2 RA long axis: 7.1 cm LA A4 area: 35.2 cm2 RA area: 30.3 cm2 LA length (vol): 7.5 cm RA vol: 109.9 ml LA vol: 137.9 ml RA : 46.8 ml/m2 LA vol index: 58.7 ml/m2 IVC diam: 2.7 cm RVD1 (basal): 3.8 cm RVD2 (mid): 4.0 cm TAPSE: 1.5 cm Doppler Measurements & Calculations Ao V2 max: 118.2 cm/sec LVOT Max Sarthak: 61.2 cm/sec Ao V2 mean: 83.5 cm/sec LV V1 max P.5 mmHg Ao max P.6 mmHg LV V1 VTI: 10.0 cm Ao mean P.1 mmHg JESSICA(I,D): 2.0 cm2 Ao V2 VTI: 18.3 cm JESSICA(V,D): 1.9 cm2 sev ratio: 0.55 JESSICA indexed to BSA (cm^2/m^2): 0.87 MV E max sarthak: 98.7 cm/sec TR max sarthak: 299.5 cm/sec MV A max sarthak: 1.7 cm/sec TR max P.9 mmHg MV E/A: 59.3 PA pr(Accel): 46.5 mmHg Med Peak E' Sarthak: 6.8 cm/sec E/E' med: 14.5 Lat Peak E' Sarthak: 11.6 cm/sec E/E' lat: 8.5 E/e' average: 11.5 MV dec time: 0.16 sec MR ERO: 0.27 cm2 MR PISA: 3.7 cm2 SV(LVOT): 37.4 ml MR flow rate: 143.5 cm3/sec MR PISA radius: 0.77 cm Electronically signed by: Lianet Quinteros M.D. on Reading Physician:08/09/2022 05:45 PM
[2022-08-08] MEDS: APIXABAN 5 MG TABLET PO (21:22)
--- NOTE | 2022-08-08 22:10 | PC.NURSE ---
Admitted patient at 2034. Patient awake alert, and talking in full sentences. oriented to room and admission completed.
[2022-08-09] VITALS (14 sets, daily range): BP systolic 115–142; BP diastolic 64–85; PULSE 70–103; RESP 16–20; TEMP 35.7–36.8; O2SAT 91–93
[2022-08-09 05:38] LABS: Add Manual Diff / Slide Review NO; Basophils Absolute Auto 100 /uL (0-100); Basophils Percent Auto 0.7 % (0-2); Eosinophils Absolute Auto 100 /uL (0-450); Eosinophils Percent Auto 1.3 % (2-4); Hematocrit 39.9 % (36-46); Hemoglobin 12.9 g/dL (12.0-16.0); Lymphocytes Absolute Auto 1000 /uL (1100-4500); Lymphocytes Percent Auto 9.8 % (25-40); Mean Corpuscular HGB Conc 32.3 % (30-36); Mean Corpuscular Hemoglobin 29.4 PG (26-34); Mean Corpuscular Volume 91.2 fL (80-100); Monocytes Absolute Auto 500 /uL (0-900); Monocytes Percent Auto 5.3 % (3-14); Neutrophils Absolute Auto 8500 /uL (1500-7000); Neutrophils Percent Auto 82.9 % (50-75); Platelet Count 255 X10^3/uL (150-400); Red Blood Cell Count 4.38 X10^6/uL (4.0-5.2); Red Cell Distribution Width 15.8 % (11.6-14.8); White Blood Cell Count 10.2 X10^3/uL (4.5-11.0)
[2022-08-09 05:58] LABS: BUN Creatinine Ratio 29.3 (6-22); Blood Urea Nitrogen 17 mg/dL (7-17); Calcium 9.2 mg/dL (8.4-10.2); Carbon Dioxide 31 mmol/L (22-32); Chloride 98 mmol/L (98-107); Estimated Glomerular Filt Rate > 60 mL/min (>60); Glucose 118 mg/dL (80-110); HEMOLYSIS < 15 (0-50); Magnesium 1.9 mg/dL (1.6-2.3); Potassium 3.8 mmol/L (3.4-5.1); Sodium 138 mmol/L (137-145)
[2022-08-09] MEDS: FUROSEMIDE 40 MG/4 ML VIAL IV ×2 (06:01→17:23)
[2022-08-09] MEDS: METOPROLOL ER 50 MG TABLET PO ×2 (08:19→11:34)
[2022-08-09] MEDS: azaTHIOprine 50 MG TABLET 100 MG PO (08:19)
[2022-08-09] MEDS: APIXABAN 5 MG TABLET PO ×2 (08:19→20:28)
[2022-08-09] MEDS: MESALAMINE 800 MG TABLET.DR 2400 MG PO (11:35)
--- NOTE | 2022-08-09 11:48 | DIET.CONS2 ---
Dietary Inpatient Consultation Note Admission Date: 08/08/2022 16:21 RD met c pt at bedside to take meal order. Pt with new onset CHF. Pt has completed 2/5 DM outpatient visits with our music educator. Requesting information on sodium content of foods. Provided pt handout on reccs for heart healthy diet and sodium restriction on top of her DM diet. Pt planning to schedule f/u c DM educator to review. Diet: 08/08/22 Breakfast Low Sodium Diet (2gm) Diet Modifications: 08/09/22 Breakfast Fluid Restriction Diet Diet Modifications: Total fluid amount: 1,500 Amount allotted to patient trays: 0 Fluid in addition to trays: 1789-8034 amount: 1,000 1644-0208 amount: 500 Nutrition Percent Meal Consumed 100% 08/09/22 10:00 Electronically Signed by: Griselda Lakhani 08/09/22 11:48 Clinical Dietitian [address] [address]
[2022-08-09] MEDS: INSULIN LISPRO 100 UNIT/ML 3ML VIAL SUBCUT (12:03)
--- NOTE | 2022-08-09 14:13 | CM.DANOTE ---
DCP/assessment: Reviewed chart. Patient is a 81yr old female admitted to [facility] with CHF exacerbation. PCP is Dr. Easton. Primary payor is 1)Medicare 2)[employer]. Met with patient explained CM/SW role. Patient reports that she resides with her spouse in [place]. At this time patient does not anticipate any d/c planning needs. Right now the main goal is for her to get fluid off. Patient reports that she is very I with ADL's at baseline. Patient currently inpatient status and except d/c within the next 24-48hrs. P: Home when stable. CM team to continue to follow. PARRISH Harden Discharge Planning/Care Management CM Discharge Assessment Start: 08/09/22 14:00 Freq: Status: Active Protocol: Document 08/09/22 14:00 KJS (Rec: 08/09/22 14:13 KJS [id number]) Discharge Planning Assessment Assigned Ampoule Inspector PARRISH Harden Contact Information Daron Reynolds (spouse) ph# [phone] Advance Directives? No Advance Directives on File No History Provided By Patient,Medical Record Prior Living Arrangements House Household Members spouse Type of transporation used prior to Drives own vehicle admit Independent with ADL's Yes Is patient alert and oriented? Yes Caregiver for Another No Comment Currently patient uses no DME. Barriers to Discharge No Comment Patient wants to d/c home when medically stable. Discharge Plan Home Transportation Arrangement Spouse plans to transport pt home at d/c. Additional Comment Patient admitted for CHF. Patient feeling better now and hopeful she will be able to d /c home within the next 24- 48hrs. Patient reports that she has lots of family support . SNF/HH Preference None needed Whiteboard Updated in Patient Room with Yes name and ext. # of Ampoule Inspector Review Status In Process Next Review Type Continued Stay Review
--- NOTE | 2022-08-09 15:24 | P.PN_ITS ---
Subjective Subjective Date Patient Seen: 08/09/22 Time Patient Seen: 08:00 Interval history: Note yesterday erroneously noted no edema on exam. She actually had 2+. Today she is seen and feeling much better. Less leg swelling and her breathing is less labored. She has sats 89-90% when I am in the room, on room air. Exam Vital Signs (past 8 hours): - 08/09/22 08:19 08/09/22 08:00 08/09/22 11:34 Temperature 96.3 F L Pulse Rate 95 H 95 H 91 H Respiratory Rate 16 Blood Pressure 123/77 123/77 117/70 Pulse Oximetry 92 Oxygen Delivery Method Oxygen Flow Rate 0 08/09/22 08:00 08/09/22 12:00 08/09/22 13:00 Temperature 96.9 F L Pulse Rate 99 H Respiratory Rate 16 Blood Pressure 138/84 Pulse Oximetry 92 91 93 Oxygen Delivery Method Room Air Room Air Oxygen Flow Rate 0 Oxygen Delivery Method Room Air Oxygen Flow Rate 0 Narrative Exam Narrative: GEN: short of breath with movement PULM: clear bilaterally, no wheezes, rhonchi, rales CV: irregular ABD: soft, nontender, nondistended, no organomegaly EXT: warm and well perfused, with 2+ edema NEURO: awake, alert, oriented, no focal deficits Objective Labs Result Diagrams: 08/09/22 04:23 08/09/22 04:23 Labs: Laboratory Results - last 24 hr 08/09/22 08/09/22 04:23 04:23 WBC 10.2 RBC 4.38 Hgb 12.9 Hct 39.9 MCV 91.2 MCH 29.4 MCHC 32.3 RDW 15.8 H Plt Count 255 Neut % (Auto) 82.9 H Lymph % (Auto) 9.8 L [place] % (Auto) 5.3 Eos % (Auto) 1.3 L Baso % (Auto) 0.7 Neut # (Auto) 8500 H Lymph # (Auto) 1000 L [place] # (Auto) 500 Eos # (Auto) 100 Baso # (Auto) 100 Sodium 138 Potassium 3.8 Chloride 98 Carbon Dioxide 31 BUN 17 Creatinine 0.58 Estimated GFR > 60 BUN/Creatinine Ratio 29.3 H Glucose 118 H Calcium 9.2 Magnesium 1.9 PFSH Medical History Exercise intolerance Left knee pain Sleep apnea Type 2 diabetes mellitus Ulcerative colitis in remission Social History household members: spouse Smoking Status: Former smoker alcohol intake: never Assessment & Plan Assessment & Plan narrative: 1. Acute CHF exacerbation -suspect etiology could be induced from tachcyardia from uncontrolled afib -ECHO pending -treat afib as below -IV lasix BID -low salt diet, fluid restriction -receiving and processing supervisor consult about CHF -goal 2-3L net negative daily 2. Atrial fibrillation with RVR -improved with metoprolol, increase to 100mg XL BID -will add additional meds if difficult to control -ECHO as above -continue apixaban -hold off on diltiazem for now 3. Type 2 Diabetes -continue metformin -insulin sliding scale 4. Colitis -continue lialda, azathioprine CODE: Full Proxy: Daron Reynolds, I have utilized all available resources to reconcile the patient's home medications. Time Spent With Patient Critical Care time: I spent a total of [] minutes of critical care time on this patient's care today; this time is exclusive of procedural time. Quality VTE Deep Vein Thrombosis/Pulmonary Embolism Present on Admission: No
[2022-08-09] MEDS: METOPROLOL ER 50 MG TABLET 100 MG PO (20:28)
[2022-08-10] VITALS (10 sets, daily range): BP systolic 105–120; BP diastolic 60–65; PULSE 86–92; RESP 16–18; TEMP 35.9–36.3; O2SAT 93–97
[2022-08-10] MEDS: FUROSEMIDE 40 MG/4 ML VIAL IV (06:18)
[2022-08-10] MEDS: APIXABAN 5 MG TABLET PO (08:37)
[2022-08-10] MEDS: METOPROLOL ER 50 MG TABLET 100 MG PO (08:38)
[2022-08-10] MEDS: azaTHIOprine 50 MG TABLET 100 MG PO (08:38)
[2022-08-10] MEDS: MESALAMINE 800 MG TABLET.DR 2400 MG PO (08:38)
--- NOTE | 2022-08-10 11:12 | PC.NURSE ---
Day shift note: Patient ambulated in hallway with continuous pulse ox O2 sat 91-94%, HR 103. States very minimal short of breath at end of ambulation, as per her baseline prior to admission. States significant improvement in breathing effort from day of admission.
--- NOTE | 2022-08-10 12:48 | PC.NURSE ---
Discharge note: Patient discharge home per MD order, discussed importance of F/U with PMD in 3-5 days, new low NA+ dietary changes, and signs of worsening symptoms. Also, discussed importance of daily weights and medication adherence. Rxs handed to patient. Patient verbalized understanding of instructions. Home with spouse via private vehicle.
--- NOTE | 2022-08-10 17:26 | PM.DS.1 ---
History of Present Illness History of Present Illness Chief complaint: thinks she has CHF /legs swollen/SOB Narrative: Ms. Reynolds is a 81W with PMH of atrial fibrillation who presents to the hospital with tachycardia and shortness of breath. She was admitted to the hospital in March 2022, diagnosed with afib and ultimately discharged on rate control medications and eliquis. She followed up with cardiology who prescribed a different medication, she was apparently supposed to change medications. She thought she should be taking both. She has been checking herself at home and has at least a month of tachycardia, worsening shortness of breath, exertional dyspnea, lower leg swelling and 15lb weight gain. In the ED, workup was done, vitals notable for tachycardia. Labs notable for WBC 11.6, INR 2.5. BNP 2270. Trop negative. INR 2.5. EKG showed afib with rapid rate. Chest xray patchy bibasilr atelectasis. Lasix and metoprolol were given and she was admitted for further treatment. Family history: no history of heart disease Discharge Providers Provider Date of admission: 08/08/22 16:21 Discharge Date: 08/10/22 Primary care physician: Lexx Easton DO Discharge provider: Kyaw Piper MD Summary Hospital Course Discharge Diagnosis: 1. Acute CHFrEF exacerbation 2. Atrial fibrillation with RVR 3. Type 2 Diabetes 4. Chornic colitis Hospital Course: Ms. Reynolds was admitted with a new diagnosis of CHF. This is likely secondary to persistent tachycardia from uncontrolled afib over weeks to likely months before coming here. Heart rate became well controlled on metoprolol 100mg XL BID. Her breathing markedly improved with lasix. She was diuresed net negative over 5L. She should continue to gently diurese at home. ECHO showed an EF 40-45% a new finding likely secondary to tachycardia. She met with publication distributor to discuss CHF appropriate diet. She will be discharged home with referral for close follow up with PCP, globe mounter within a week and continued follow up with publication distributor. She is encouraged to use a scale to monitor weight daily. Exam Vital Signs (past 8 hours): - 08/10/22 11:33 08/10/22 12:46 08/10/22 12:00 Temperature 97.2 F L Pulse Rate 92 H 92 H Respiratory Rate 17 Blood Pressure 109/65 109/65 Pulse Oximetry 93 93 Oxygen Delivery Method Room Air Oxygen Flow Rate 0 Oxygen Delivery Method Room Air Oxygen Flow Rate 0 Narrative Exam Narrative: GEN: no acute distress PULM: clear bilaterally, no wheezes, rhonchi, rales CV: irregular ABD: soft, nontender, nondistended, no organomegaly EXT: warm and well perfused, with trace edema NEURO: awake, alert, oriented, no focal deficits Objective Labs Result Diagrams: 08/09/22 04:23 08/09/22 04:23 [facility] Medical History Exercise intolerance Left knee pain Sleep apnea Type 2 diabetes mellitus Ulcerative colitis in remission Social History household members: spouse Smoking Status: Former smoker alcohol intake: never Discharge Plan Discharge Plan Patient Disposition: Home Provider Discharge Comment: Ms. Reynolds was admitted with shortness of breath and fast heart rate. She improved with some adjustments to her metoprolol which controls her heart. She also has a new diagnosis of congestive heart failure. She improved with diuretics. She should check her weight daily, and take one extra dose of lasix if her weight increases by 3lbs or more and call her doctor. She should follow low salt diet. She should keep follow up with publication distributor. Discharge orders & Medications Prescriptions: New metoprolol succinate 50 mg Tablet Extended Release 24 Hr 100 mg PO BID Qty: 60 0RF furosemide [Lasix] 40 mg tablet 40 mg PO DAILY Qty: 30 0RF Continued Eliquis 5 mg tablet See Rx Instructions .ROUTE .COMPLEX Qty: 180 1RF Dose Instruction: TAKE 1 TABLET TWICE A DAY Rx Instructions: TAKE 1 TABLET TWICE A DAY metformin 500 mg tablet See Rx Instructions .ROUTE .COMPLEX Qty: 180 1RF Dose Instruction: TAKE 1 TABLET TWICE A DAY WITH MEALS Rx Instructions: TAKE 1 TABLET TWICE A DAY WITH MEALS (DME) blood-glucose meter [Accu-Chek Guide Glucose Meter] Mis See Rx Instructions .Route Qty: 1 0RF Rx Instructions: As directed (DME) lancets [Accu-Chek Softclix Lancets] Mis See Rx Instructions .Route Qty: 100 2RF Rx Instructions: As directed (DME) Accutrend Glucose test strips Strip See Rx Instructions .Route Qty: 50 2RF Rx Instructions: As directed mesalamine [Lialda] 1.2 gram tablet,delayed release (DR/EC) 2.4 g PO BID Label Comments: Take 2 tablet by mouth twice a day cetirizine 10 mg Tablet 10 mg PO DAILY azathioprine 50 mg tablet 100 mg PO DAILY Label Comments: Take 2 tablet by mouth once a day Need appointment for more refills- Dr Gaona has retired cholecalciferol (vitamin D3) 50 mcg (2,000 unit) Tablet 2,000 unit PO DAILY Follow up/Referrals: Jamee Myles MD [Physician] - Lexx Easton DO [Primary Care Provider] - 3-5 Days (hospitalized afib with rvr, new CHF diagnosis) Diet/Activity/Treatments Diet: Low-sodium Discharge Data Primary Care Provider: Lexx Easton Quality VTE Deep Vein Thrombosis/Pulmonary Embolism Present on Admission: No
== END 2022-08-10 13:09 | disposition home or self-care (01) | DRG 292 ==
LOC: ED 16:12 → AC 16:22
PROVIDERS: Admitting Provider Internal Medicine; Emergency Provider Emergency Medicine; PCP Family Medicine; Referring Provider Emergency Medicine; Visit Provider Internal Medicine
DX: I50.21 Acute systolic (congestive) heart failure (principal); D84.821 Immunodeficiency due to drugs; I48.91 Unspecified atrial fibrillation; E11.9 Type 2 diabetes mellitus without complications; K52.9 Noninfective gastroenteritis and colitis, unspecified; R00.0 Tachycardia, unspecified; Z79.624 Long term (current) use of inhibitors of nucleotide synthesis; Z79.01 Long term (current) use of anticoagulants; Z87.891 Personal history of nicotine dependence; Z79.84 Long term (current) use of oral hypoglycemic drugs; Z20.822 Contact with and (suspected) exposure to COVID-19
CPT/HCPCS: 0241U; 36415; 71045; 80048; 80053; 82962; 83605; 83735; 83880; 84484; 85025; 85610; 93005; 93306; 96374; 99284; J1815; J1940; J7500

== ENCOUNTER → 2022-11-04 12:35 | Outpatient (CLI) | payer MEDICARE, OTHER, SELFPAY ==
[2022-08-08 18:25] VITALS: BMI 44.6
--- NOTE | 2022-11-04 | DI.ECHO.S_ITS ---
[facility] +---------+ : : [address] : : : : [id number] : : : : Phone: [phone]+ Echocardiogram Report + + :Name: SUBHASH BELLAMY Study Date: 11/04/2022 Height: 67 in : :[facility] ReadingLocation: Weight: 245 lb : : Gender: Female BSA: 2.2 m2 : :: 1940 Age: 81 yrs BP: 128/86 mmHg: :Reason For Study: CARDIOMYOPATHY HR: 55 : :Ordering Physician: SHYANNE, : :LADY Parson Performed By: WANDA ALCOCER : :Referring: LADY KIMBLE : + + Interpretation Summary Limited Echo 1) Normal left ventricular size and thickness with mildly reduced systolic function (EF 45-50%). 2) Mildy enlarged right ventricle with normal sysotlic function. 3) There is mild mitral regurgitation. 4) Compared to the Echo done 08/09/2022, LVEF has improved from 40-45% to 45- 50% on this study. Procedure: A two-dimensional transthoracic echocardiogram with color flow and Doppler was performed in limited views only to assess ventricular function. The study quality was technically adequate. Comparison is made with the echocardiogram of 08/09/2022. The patient was in normal sinus rhythm during the exam. Left Ventricle: The left ventricle is normal in size and wall thickness. The ejection fraction is estimated to be 45-50%. There is mild global hypokinesis of the left ventricle. Right Ventricle: The right ventricle is mildly dilated. The right ventricular systolic function is normal. Atria: The left atrium is moderately dilated. Right atrial size is normal. Mitral Valve: There is mild mitral annular calcification. There is mild mitral regurgitation. Aortic Valve: The aortic valve is trileaflet. The aortic valve opens well. The aortic valve is slightly calcified. There is no aortic valve stenosis. Great Vessels: The IVC is of normal diameter and collapses greater than 50% with a sniff. This suggests a low right atrial pressure of 3 mm Hg. Pericardium/ Pleura There is no pericardial effusion. There is no pleural effusion. MMode/2D Measurements & Calculations LVIDd: 4.7 cm LA A2 area: 26.9 cm2 LVIDs: 3.2 cm LA A4 area: 29.5 cm2 FS: 31.9 % LA length (vol): 6.2 cm IVSd: 0.90 cm LA vol: 108.5 ml LVPWd: 1.1 cm LA vol index: 49.2 ml/m2 LV gonzalez. diameter/BSA (cm/m^2): 2.1 LV sys. diameter/BSA (cm/m^2): 1.5 RA long axis: 5.2 cm LVLs ap4: 6.4 cm LVLd ap2: 6.4 cm TAPSE_phl: 1.7 cm LVLs ap2: 5.6 cm Doppler Measurements & Calculations Ao V2 max: 174.0 cm/sec MV E max sarthak: 63.8 cm/sec Ao max P.1 mmHg MV A max sarthak: 78.8 cm/sec MV E/A: 0.81 Med Peak E' Sarthak: 5.7 cm/sec E/E' med: 11.2 Lat Peak E' Sarthak: 9.6 cm/sec E/E' lat: 6.7 E/e' average: 8.9 MV dec time: 0.31 sec MV P1/2t-pr_phl: 90.0 msec Reading Physician:10:44 AM
== END ==
PROVIDERS: PCP Family Medicine; Referring Provider Nurse Practitioner; Visit Provider Nurse Practitioner
DX: I48.19 Other persistent atrial fibrillation (principal); I42.9 Cardiomyopathy, unspecified; I51.7 Cardiomegaly; I34.0 Nonrheumatic mitral (valve) insufficiency
CPT/HCPCS: 93306

== ENCOUNTER → 2022-11-22 12:08 | Outpatient (CLI) | payer MEDICARE, OTHER, SELFPAY ==
[2022-08-08 18:25] VITALS: BMI 44.6
--- NOTE | 2022-11-22 | DI.NM.S_ITS ---
PROCEDURE: NM CLIVE PERF SPECT REST & STR Rest and exercise myocardial perfusion SPECT with gated imaging and ejection fraction RADIOPHARMACEUTICAL: 26.5 mCi Tc-99m sestamibi IV at rest and 25.4 mCi Tc-99m sestamibi IV at peak exercise. A 5-znm-[id number] was performed. INDICATIONS: Cardiomyopathy, unspecified TECHNIQUE: Radiopharmaceutical was injected at peak stress test, and also at rest. SPECT images were obtained. SPECT myocardial perfusion images were displayed in short axis, horizontal long axis, and vertical long axis views. Gated images were reviewed using Vyopta software. COMPARISON: None. CARDIAC STRESS: A standard Kevin treadmill exercise tolerance test was performed by the patient under the supervision of an attending staff. The patient exercised for 3 minutes and 0 seconds; 4.6 METS; functional aerobic impairment (MARITZA) is +36%. Hemodynamic data: There is an abnormal blood pressure and heart rate response to exercise stress. Patient achieved 131% of maximum predicted heart rate at peak exercise. Maximum blood pressure 200/80. Symptoms: Patient denied chest pain during exercise. EKG: No diagnostic EKG changes of ischemia; no ectopy. FINDINGS: Raw data: There is good myocardial labeling by radiotracer. No significant motion artifacts. Hseh-zd-epkwl ratio is 0.32 (normal is less than 0.38 for sestamibi tracer, and less than 0.50 for thallium tracer). Left ventricle function: Gated images demonstrate normal left ventricle wall thickening. No segmental wall motion abnormality. No transient ischemic dilation; TID is 0.9 (normal less than 1.3). The left ventricle resting end-diastolic volume is 118 mL. Left ventricle stress ejection fraction is 73%; normal values are above 45%. Myocardial perfusion: There is a medium size, mild intensity reversible basal to mid lateral wall defect. IMPRESSION: Abnormal study. There is a medium size, mild intensity reversible basal to mid lateral wall defect suggestive of inducible ischemia. Unfortunately, no prone images were obtained. Normal LV function. Accelerated heart rate and elevated blood pressure response. Reduced exercise capacity. Dictated by: Santa Kelly D.O. on 11/23/2022 at 16:30 Approved by: Santa Kelly D.O. on 11/23/2022 at 16:36
== END ==
PROVIDERS: PCP Family Medicine; Referring Provider Nurse Practitioner; Visit Provider Nurse Practitioner
DX: I42.9 Cardiomyopathy, unspecified (principal); I48.19 Other persistent atrial fibrillation; R94.39 Abnormal result of other cardiovascular function study
CPT/HCPCS: 78452; 93017; A9502

== ENCOUNTER → 2022-12-04 11:09 | Outpatient (CLI) | payer MEDICARE, OTHER, SELFPAY ==
[2022-08-08 18:25] VITALS: BMI 44.6
[2022-12-04 12:49] LABS: Alanine Aminotransferase 33 IU/L (<35); Albumin Globulin Ratio 1.4 (1.0-2.8); Alkaline Phosphatase 62 U/L (38-126); Aspartate Aminotransferase 26 IU/L (14-36); BUN Creatinine Ratio 23.5 (6-22); Bilirubin Total 0.9 mg/dL (0.2-1.3); Blood Urea Nitrogen 19 mg/dL (7-17); Calcium 9.5 mg/dL (8.4-10.2); Carbon Dioxide 29 mmol/L (22-32); Chloride 103 mmol/L (98-107); Estimated Glomerular Filt Rate > 60 mL/min (>60); Globulin 2.9 g/dL (1.7-4.1); Glucose 97 mg/dL (80-110); HEMOLYSIS < 15 (0-50); Potassium 3.9 mmol/L (3.4-5.1); Sodium 138 mmol/L (137-145); Total Protein 6.9 g/dL (6.3-8.2)
[2022-12-04 13:27] LABS: Thyroid Stimulating Hormone 2.05 uIU/mL (0.47-4.68)
[2022-12-05 07:50] LABS: x Labcorp Estim. Avg Glu (eAG) 128 mg/dL (.); x Labcorp Hemoglobin A1c 6.1 % (4.8-5.6)
== END ==
PROVIDERS: PCP Family Medicine; Referring Provider Nurse Practitioner; Visit Provider Nurse Practitioner
DX: E11.9 Type 2 diabetes mellitus without complications (principal); I42.9 Cardiomyopathy, unspecified; I50.9 Heart failure, unspecified
CPT/HCPCS: 36415; 80053; 83036; 84443

== ENCOUNTER → 2023-08-24 11:46 | Outpatient (CLI) | payer MEDICARE, OTHER, SELFPAY ==
[2022-08-08 18:25] VITALS: BMI 44.6
== END ==
PROVIDERS: PCP Family Medicine; Visit Provider Nurse Practitioner Family
DX: R30.0 Dysuria (principal)
CPT/HCPCS: 87077; 87086; 87186

== ENCOUNTER 2023-08-27 17:49 | Emergency (ER) | payer MEDICARE, OTHER, SELFPAY ==
[2022-08-08 18:25] VITALS: BMI 44.6
[2023-08-27 18:16] VITALS: BP 140/69; PULSE 70; RESP 18; TEMP 36.3; O2SAT 96; BMI 42.3
[2023-08-27 20:55] VITALS: PULSE 54; O2SAT 93
[2023-08-27 20:58] VITALS: BP 133/61; PULSE 57; O2SAT 95
[2023-08-27 21:00] VITALS: BP 133/65; PULSE 56; O2SAT 96
[2023-08-27 21:09] LABS: Appearance Urine UA CLEAR; Bilirubin Urine UA NEGATIVE (NEGATIVE); Color Urine UA ORANGE; Glucose Urine UA 3+ g/dL (Negative); Ketones Urine UA TRACE (NEGATIVE); Leukocyte Esterase Urine UA NEGATIVE (NEGATIVE); Nitrite Urine UA POSITIVE (Negative); Occult Blood Urine UA 1+ (Negative); Protein Urine UA 1+ (Negative); Specific Gravity Urine UA 1.015 (1.000-1.035)
[2023-08-27 21:26] LABS: Bacteria Urine Few (2-10); Culture Indicated Urine Specimen Cultured; RBC Urine 1-5/HPF (0-5/HPF); Squamous Epithelial Cell Urine 0-1 /HPF (0-5/HPF); WBC Urine 1-5/HPF (0-5/HPF)
[2023-08-27 21:30] VITALS: PULSE 81; O2SAT 97
--- NOTE | 2023-08-27 21:31 | ED.FEMALEGU ---
HPI - Female Genitourinary General Chief complaint: Urogenital-Female Stated complaint: bladder infection back pain Time Seen by Provider: 08/27/23 21:31 Source: patient Mode of arrival: Family Vehicle History of Present Illness HPI Narrative: Patient 82-year-old female history of diabetes, hypertension atrial fibrillation on Eliquis recently diagnosed with UTI put on Keflex however based on culture from 08/24/2023 new antibiotic Macrobid was called in for her. She is taken 4 doses of it. There was concern from urgent Care requesting that she come to the ED for further evaluation. She has minimal back pain no nausea vomiting or fever. In fact she is starting to feel better. Related Data Home Medications Medication Instructions Recorded Confirmed cetirizine 10 mg tablet 10 mg PO DAILY 03/16/22 08/24/23 cholecalciferol (vitamin D3) 50 2,000 unit PO DAILY 03/16/22 08/24/23 mcg (2,000 unit) tablet amiodarone 200 mg tablet 200 mg PO 09/30/22 08/24/23 atorvastatin 20 mg tablet 20 mg PO DAILY 09/30/22 08/24/23 azathioprine 50 mg tablet 50 mg PO DAILY 09/30/22 08/24/23 furosemide 40 mg tablet (Lasix) 20 mg PO DAILY 09/30/22 08/24/23 mesalamine 1.2 gram tablet,delayed 3.6 g PO TID 09/30/22 08/24/23 release (Lialda) metoprolol succinate 25 mg 25 mg PO DAILY 09/30/22 08/24/23 tablet,extended release 24 hr olopatadine 0.1 % eye drops 1 drp EYE-BOTH 09/30/22 08/24/23 sacubitril 24 mg-valsartan 26 mg tab PO 09/30/22 08/24/23 tablet (Entresto) Previous Rx's Medication Instructions Recorded empagliflozin 25 mg tablet 25 mg PO DAILY #90 tabs 09/30/22 (Jardiance) apixaban 5 mg tablet (Eliquis) See Rx Instructions .Route 01/13/23 .COMPLEX #180 tabs metformin 500 mg tablet 500 mg PO BID #180 tabs 04/12/23 nirmatrelvir 300 mg (150 mg See Rx Instructions PO .COMPLEX 05/06/23 x2)-ritonavir 100 mg tablet,dose #30 ea pack (Paxlovid) nitrofurantoin 100 mg PO Q12H enterococcus UTI 5 08/26/23 monohydrate/macrocrystals 100 mg days #10 caps capsule (Macrobid) nitrofurantoin 100 mg PO Q12H 2 days #4 caps 08/27/23 monohydrate/macrocrystals 100 mg capsule (Macrobid) Allergies Allergy/AdvReac Type Severity Reaction Status Date / Time codeine AdvReac Weakness Verified 08/27/23 18:24 morphine AdvReac Vomiting Verified 08/27/23 18:24 Patient History Medical History Hypertension Hyperlipidemia Exercise intolerance Left knee pain Sleep apnea Type 2 diabetes mellitus Ulcerative colitis in remission tobacco type: cigarettes Substance Use Type: does not use Exam Initial Vital Signs Initial Vital Signs: Vital Signs Temperature 97.4 F L 08/27/23 18:16 Pulse Rate 70 08/27/23 18:16 Respiratory Rate 18 08/27/23 18:16 Blood Pressure 140/69 08/27/23 18:16 Pulse Oximetry 96 08/27/23 18:16 Oxygen Delivery Method Room Air 08/27/23 18:16 GENERAL: Alert very pleasant well-appearing year old female CARDIOVASCULAR: peripheral pulses in tact, cap refill <2 sec RESPIRATORY: No respiratory distress, speaks in full sentences without difficulty ABDOMEN: Soft, nontender, no guarding or rebound EXTREMITIES: Normal range of motion, no clubbing or edema. Neurovascularly intact NEUROLOGICAL: Cranial nerves II through XII grossly intact. Normal gait and speech. SKIN: Warm, dry, no petechiae, no rashes or lesions. Course Orders Ordered: ED Orders 08/27/23 20:30 Urinalysis and Microscopic Stat Urine Culture Stat Discontinued Medications Cefazolin Sodium (Cephalexin 250 Mg Cap Prepack) 1 bottle MISC DIRECTED ONE Stop: 08/27/23 21:32 Last Admin: 08/27/23 21:45 Dose: Not Given Documented By: GAGE Vital Signs Vital signs: Vital Signs - 8 hr 08/27/23 18:16 08/27/23 20:55 08/27/23 20:58 Temperature 97.4 F L Pulse Rate 70 54 L Respiratory Rate 18 Blood Pressure 140/69 133/61 Pulse Oximetry 96 93 Oxygen Delivery Method Room Air 08/27/23 20:58 08/27/23 21:00 08/27/23 21:00 Temperature Pulse Rate 57 L 56 L Respiratory Rate Blood Pressure 133/65 Pulse Oximetry 95 96 Oxygen Delivery Method Room Air 08/27/23 21:30 08/27/23 21:48 08/27/23 21:48 Temperature Pulse Rate 81 72 Respiratory Rate 16 Blood Pressure 134/85 Pulse Oximetry 97 95 Oxygen Delivery Method Room Air MDM - Female Genitourinary Lab Data Labs: Lab Results 08/27/23 Range/Units 20:30 Urine Color [place] Urine Appearance Clear Urine pH 5.0 (4.5-8.0) Ur Specific [place] 1.015 (1.000-1.035) Urine Protein 1+ H (Negative) Urine Glucose (UA) 3+ H (Negative) g/dL Urine Ketones Trace H (NEGATIVE) Urine Occult Blood 1+ H (Negative) Urine Nitrate Positive H (Negative) Urine Bilirubin Negative (NEGATIVE) Urine Urobilinogen 2.0 H (0.2) E.U./dL Ur Leukocyte Esterase Negative (NEGATIVE) Urine RBC 1-5/hpf (0-5/HPF) Urine WBC 1-5/hpf (0-5/HPF) Ur Squamous Epith Cells 0-1 /hpf (0-5/HPF) Urine Bacteria Few (2-10) H (None) Ur Culture Indicated? Specimen cultured MDM Narrative Medical decision making narrative: Patient is a well-appearing 82-year-old female history of diabetes congestive heart failure atrial fibrillation on Eliquis who presents today without any symptoms with a known UTI. She is only taken 2 doses of Macrobid which should work. She appears well she has minimal back pain if any. Urine culture from August 24 shows Enterococcus faecalis, with sensitivity to Macrobid. At this time she appears well she is afebrile she wants to go home she is minimal symptoms. I recommend that she keep taking the Macrobid in fact write her for both 7 days' worth of Macrobid rather than only 5. We discussed warning signs and symptoms and when to return the ED. Discharge Plan Departure Patient Disposition: Home Clinical Impression: Acute UTI Instructions: DI for Urinary Tract Infection (UTI) Activity Restrictions/Additional Instructions: *You have been diagnosed with UTI *What to do: At this time keep taking nitro serotonin as prescribed I will add 2 additional days for you. *Continue to take medications as directed Nitrofurantoin 100 mg twice a day for a total of 7 days *Follow up with your primary care provider in 2-3 days or call [phone] *Return to ER if you should have increasing back pain nausea vomiting fever persistent symptoms or any new, worsening or concerning symptoms Prescriptions: New nitrofurantoin monohyd/m-cryst [Macrobid] 100 mg capsule 100 mg PO Q12H 2 Days Qty: 4 0RF Rx Instructions: must administer with a meal/food No Action Eliquis 5 mg tablet See Rx Instructions .ROUTE .COMPLEX Qty: 180 1RF Dose Instruction: TAKE 1 TABLET TWICE A DAY Rx Instructions: TAKE 1 TABLET TWICE A DAY metformin 500 mg tablet 500 mg PO BID Qty: 180 1RF Paxlovid 300 mg (150 mg x 2)-100 mg tablets,dose pack See Rx Instructions PO .COMPLEX Qty: 30 0RF Rx Instructions: take TWO 150 mg tablets of nirmatrelvir with ONE 100 mg tablet of ritonavir twice daily for 5 days PO TAKE STATIN EVERY OTHER DAY nitrofurantoin monohyd/m-cryst [Macrobid] 100 mg capsule 100 mg PO Q12H 5 Days Qty: 10 0RF Rx Instructions: must administer with a meal/food amiodarone 200 mg tablet 200 mg PO atorvastatin 20 mg tablet 20 mg PO DAILY metoprolol succinate 25 mg tablet extended release 24 hr 25 mg PO DAILY olopatadine 0.1 % drops 1 drp EYE-BOTH Entresto 24-26 mg tablet PO furosemide [Lasix] 40 mg tablet 20 mg PO DAILY Jardiance 25 mg tablet 25 mg PO DAILY Qty: 90 3RF cetirizine 10 mg Tablet 10 mg PO DAILY cholecalciferol (vitamin D3) 50 mcg (2,000 unit) Tablet 2,000 unit PO DAILY azathioprine 50 mg tablet 50 mg PO DAILY mesalamine [Lialda] 1.2 gram tablet,delayed release (DR/EC) 3.6 g PO TID Patient Comments: Take 3 tablet by mouth twice a day Referrals: Lexx Easton DO [Primary Care Provider] - Stand Alone Forms: Patient Portal/API
[2023-08-27 21:48] VITALS: BP 134/85; PULSE 72; RESP 16; O2SAT 95
== END 2023-08-27 21:54 | disposition home or self-care (01) ==
PROVIDERS: Emergency Provider Emergency Medicine; PCP Family Medicine
DX: N39.0 Urinary tract infection, site not specified (principal); Z79.01 Long term (current) use of anticoagulants
CPT/HCPCS: 81001; 87086; 99282

== ENCOUNTER → 2023-10-22 08:30 | Outpatient (CLI) | payer MEDICARE, OTHER, SELFPAY ==
[2022-08-08 18:25] VITALS: BMI 44.6
[2023-10-22 09:55] LABS: Hemoglobin A1C% w Est Avg Glu 5.8 % (4.0-6.0)
[2023-10-22 09:56] LABS: Alanine Aminotransferase 24 IU/L (<35); Albumin 3.7 g/dL (3.5-5.0); Albumin Globulin Ratio 1.3 (1.0-2.8); Alkaline Phosphatase 69 U/L (38-126); Aspartate Aminotransferase 19 IU/L (14-36); BUN Creatinine Ratio 28.7 (6-22); Bilirubin Total 0.7 mg/dL (0.2-1.3); Blood Urea Nitrogen 25 mg/dL (7-17); Calcium 9.4 mg/dL (8.4-10.2); Carbon Dioxide 27 mmol/L (22-32); Chloride 110 mmol/L (98-107); Cholesterol 110 mg/dL (140-199); Estimated Glomerular Filt Rate > 60 mL/min (>60); Globulin 2.8 g/dL (1.7-4.1); Glucose 111 mg/dL (80-110); HDL Cholesterol 43 mg/dL (40-60); HEMOLYSIS < 15 (0-50); LDL Cholesterol Calculated 49 mg/dL (<100); Potassium 5.2 mmol/L (3.4-5.1); Sodium 140 mmol/L (137-145); Total Protein 6.5 g/dL (6.3-8.2); Triglycerides 91 mg/dL (35-150)
[2023-10-22 14:33] LABS: Creatinine Urine Random 138.1 mg/dL
[2023-10-22 14:46] LABS: Microalbumi Creatinin Ratio Ur 7.2 ug/mg CR (<30)
== END ==
PROVIDERS: PCP Family Medicine; Referring Provider Family Medicine; Visit Provider Family Medicine
DX: E11.9 Type 2 diabetes mellitus without complications (principal); I10 Essential (primary) hypertension; E78.5 Hyperlipidemia, unspecified
CPT/HCPCS: 36415; 80053; 80061; 82043; 82570; 83036

== ENCOUNTER → 2024-06-26 18:50 | Outpatient (CLI) | payer MEDICARE, OTHER, SELFPAY ==
[2022-08-08 18:25] VITALS: BMI 44.6
== END ==
PROVIDERS: PCP Family Medicine; Visit Provider Physician Assistant Surgical
DX: L08.9 Local infection of the skin and subcutaneous tissue, unspecified (principal); T14.8XXA Other injury of unspecified body region, initial encounter
CPT/HCPCS: 87070; 87075; 87205

== ENCOUNTER 2024-08-18 10:53 | Emergency (ER) | payer MEDICARE, OTHER, SELFPAY ==
[2022-08-08 18:25] VITALS: BMI 44.6
[2024-08-18] VITALS (20 sets, daily range): BP systolic 106–193; BP diastolic 63–150; PULSE 62–129; RESP 13–24; TEMP 36.7; O2SAT 94–97; BMI 44.6
--- NOTE | 2024-08-18 11:03 | DI.RAD.S_ITS ---
PROCEDURE: XR CHEST 1V INDICATIONS: chest pain TECHNIQUE: One view of the chest was acquired. COMPARISON: [facility], CR, XR CHEST 1V, 08/08/2022, 13:29. [facility], CR, XR CHEST 1V, 03/19/2022, 8:22. FINDINGS: Surgical changes and devices: Cervical fusion hardware partially seen. Lungs and pleura: Low lung volumes. No dense airspace disease or pleural effusions. Mediastinum: Heart size is at the upper limit of normal, unchanged. Bones and chest wall: Degenerative findings. IMPRESSION: Low lung volumes on single view radiography, limiting evaluation. No dense consolidation or pleural effusion identified. Dictated by: Abe Mallory M.D. on 08/18/2024 at 10:58 Approved by: Abe Mallory M.D. on 08/18/2024 at 10:58
[2024-08-18 11:32] LABS: Add Manual Diff / Slide Review NO; Basophils Absolute Auto 100 /uL (0-100); Basophils Percent Auto 1.3 % (0-2); Eosinophils Absolute Auto 100 /uL (0-450); Eosinophils Percent Auto 1.3 % (2-4); Hematocrit 44.9 % (36-46); Hemoglobin 14.8 g/dL (12.0-16.0); Lymphocytes Absolute Auto 1200 /uL (1100-4500); Lymphocytes Percent Auto 12.7 % (25-40); Mean Corpuscular Volume 96.9 fL (80-100); Monocytes Absolute Auto 500 /uL (0-900); Monocytes Percent Auto 4.7 % (3-14); Neutrophils Absolute Auto 7800 /uL (1500-7000); Platelet Count 305 X10^3/uL (150-400); Red Blood Cell Count 4.63 X10^6/uL (4.0-5.2); White Blood Cell Count 9.8 X10^3/uL (4.5-11.0)
--- NOTE | 2024-08-18 11:34 | EKG_ITS ---
[place] [id number] [place] [id number] Test Date: 2024-08-18 Pat Name: Ruby Reynolds Department: [facility] Room: Gender: Female Safety Trainer: UMA : 1940 Requested By: Order Number: [id number] Reading MD: Ariel Quispe Measurements Intervals [place] Rate: 118 P: DE: QRS: -20 QRSD: 86 T: 102 QT: 312 QTc: 437 Interpretive Statements Atrial fibrillation with rapid ventricular response with premature ventricular or aberrantly conducted complexes Low voltage QRS Cannot rule out Anterior infarct , age undetermined Electronically Signed On 08-18-2024 17:07:25 PST by Ariel Quispe
[2024-08-18 11:37] LABS: INR 1.1 (0.9-1.3); Prothrombin Time 12.5 SECONDS (9.4-12.5)
[2024-08-18 11:40] LABS: PTT Partial Thromboplastin Tim 48 SECONDS (25.1-36.5)
--- NOTE | 2024-08-18 11:54 | ED.ARRPALP ---
HPI - Arrhythmia/Palpitations General Chief Complaint: Arrhythmia/Palpitations Stated Complaint: Afib, poss kidney infection Time Seen by Provider: 08/18/24 11:13 Source: patient Mode of arrival: Ambulatory History of Present Illness HPI narrative: Patient was an 83-year-old female. Is here for evaluation of right-sided flank pain. She states she feels like she has a kidney infection although she does not have any dysuria. No vomiting. Generally does not feel very well. She does have a history of atrial fibrillation. Is on anticoagulation. Has been taking all of her medications. She states this morning she felt like her heart rate elevated. No abdominal pain. No vomiting. No urinary symptoms. No change in bowel habits. No skin changes. Related Data Home Medications Medication Instructions Recorded Confirmed cetirizine 10 mg tablet 10 mg PO DAILY 03/16/22 07/06/24 cholecalciferol (vitamin D3) 50 2,000 unit PO DAILY 03/16/22 07/06/24 mcg (2,000 unit) tablet atorvastatin 20 mg tablet 20 mg PO DAILY 09/30/22 07/06/24 azathioprine 50 mg tablet 50 mg PO DAILY 09/30/22 07/06/24 mesalamine 1.2 gram tablet,delayed 3.6 g PO TID 09/30/22 07/06/24 release (Lialda) sacubitril 24 mg-valsartan 26 mg tab PO 09/30/22 07/06/24 tablet (Entresto) amiodarone 100 mg tablet 50 mg PO 10/20/23 07/06/24 metoprolol succinate 25 mg 12.5 mg PO DAILY 10/20/23 07/06/24 tablet,extended release 24 hr spironolactone 25 mg tablet 12.5 mg PO DAILY 10/20/23 07/06/24 mometasone 0.1 % topical ointment topical 06/26/24 07/06/24 Previous Rx's Medication Instructions Recorded apixaban 5 mg tablet (Eliquis) See Rx Instructions .Route 01/13/23 .COMPLEX #180 tabs empagliflozin 25 mg tablet 25 mg PO DAILY #90 tabs 09/07/23 (Jardiance) metformin 500 mg tablet 500 mg PO BID #180 tabs 10/11/23 metformin 500 mg tablet 500 mg PO BID #180 tabs 02/20/24 Allergies Allergy/AdvReac Type Severity Reaction Status Date / Time codeine AdvReac Weakness Verified 08/18/24 10:59 morphine AdvReac Vomiting Verified 08/18/24 10:59 Review of Systems Review of Systems ROS Unobtainable: All systems reviewed & are unremarkable except as noted in HPI and below Patient History Medical History History of atrial fibrillation Skin lesion Hypertension Hyperlipidemia Exercise intolerance Left knee pain Sleep apnea Type 2 diabetes mellitus Ulcerative colitis in remission Social History household members: spouse Smoking Status: Former smoker alcohol intake: never Smoking Status: Former smoker tobacco type: cigarettes Exam Initial Vital Signs Initial Vital Signs: Vital Signs Temperature 98.0 F 08/18/24 10:59 Pulse Rate 62 08/18/24 10:59 Respiratory Rate 16 08/18/24 10:59 Blood Pressure 147/116 H 08/18/24 10:59 Pulse Oximetry 96 08/18/24 10:59 Oxygen Delivery Method Room Air 08/18/24 10:59 Const General: cooperative, comfortable and No ill appearing HENMT Head: normal to inspection and normocephalic Resp Effort & Inspection: normal respiratory effort Auscultation: clear to auscultation bilaterally Cardio Rate: tachycardic Rhythm: abnormal rhythm GI Inspection: normal to inspection Skin General: no rashes or lesions noted Neuro General: patient alert, patient awake and moves all extremities Extrem General: normal to inspection, capillary refill normal and No edema Course Orders Ordered: ED Orders 08/18/24 11:03 XR chest 1V Stat EKG-12 Lead Stat 08/18/24 11:15 Complete Blood Count AUTO DIFF Stat Comprehensive Metabolic Panel Stat Lipase Stat Magnesium Stat NT-proBNP (BNP-Adult 18+) Stat PTT Partial Thromboplastin Teddy Stat Prothrombin Time INR Stat Troponin & CK Cardiac Panel Stat 08/18/24 11:31 Urine Culture Stat Urine Microscopic Stat 08/18/24 12:41 CT kidney ureter bladder (KUB) Stat Discontinued Medications Metoprolol Tartrate (Metoprolol Ir 25 Mg Tablet) 25 mg PO NOW ONE Stop: 08/18/24 11:57 Last Admin: 08/18/24 12:12 Dose: 25 mg Documented By: AALIYAH Vital Signs Vital signs: Vital Signs - 8 hr 08/18/24 10:59 08/18/24 11:05 08/18/24 11:06 Temperature 98.0 F Pulse Rate 62 91 H Respiratory Rate 16 Blood Pressure 147/116 H 177/108 H Pulse Oximetry 96 94 Oxygen Delivery Method Room Air 08/18/24 11:06 08/18/24 11:30 08/18/24 11:31 Temperature Pulse Rate 104 H 72 Respiratory Rate 18 Blood Pressure 193/133 H Pulse Oximetry 94 97 Oxygen Delivery Method 08/18/24 11:31 08/18/24 11:32 08/18/24 11:32 Temperature Pulse Rate 129 H 125 H Respiratory Rate 16 16 Blood Pressure 183/94 H Pulse Oximetry 96 96 Oxygen Delivery Method 08/18/24 12:00 08/18/24 12:00 08/18/24 12:15 Temperature Pulse Rate 121 H Respiratory Rate 13 Blood Pressure 165/139 H 174/149 H Pulse Oximetry 94 Oxygen Delivery Method 08/18/24 12:15 08/18/24 12:30 08/18/24 12:30 Temperature Pulse Rate 121 H 108 H Respiratory Rate 14 14 Blood Pressure 173/150 H Pulse Oximetry 95 94 Oxygen Delivery Method 08/18/24 12:46 08/18/24 12:46 08/18/24 12:58 Temperature Pulse Rate 108 H Respiratory Rate 22 Blood Pressure 152/106 H 133/84 Pulse Oximetry 94 Oxygen Delivery Method 08/18/24 12:58 08/18/24 13:00 08/18/24 13:00 Temperature Pulse Rate 112 H 113 H Respiratory Rate 17 15 Blood Pressure 122/76 Pulse Oximetry 94 94 Oxygen Delivery Method 08/18/24 13:08 08/18/24 13:08 08/18/24 13:15 Temperature Pulse Rate 86 Respiratory Rate 17 Blood Pressure 145/68 H 117/63 Pulse Oximetry 95 Oxygen Delivery Method 08/18/24 13:15 08/18/24 13:30 08/18/24 13:30 Temperature Pulse Rate 109 H 107 H Respiratory Rate 19 17 Blood Pressure 123/83 Pulse Oximetry 95 95 Oxygen Delivery Method 08/18/24 13:45 08/18/24 13:45 08/18/24 14:00 Temperature Pulse Rate 102 H 95 H Respiratory Rate 18 21 Blood Pressure 106/76 Pulse Oximetry 94 94 Oxygen Delivery Method 08/18/24 14:00 08/18/24 14:15 08/18/24 14:15 Temperature Pulse Rate 96 H Respiratory Rate 24 Blood Pressure 107/79 113/76 Pulse Oximetry 95 Oxygen Delivery Method MDM - Arrhythmia/Palpitations Lab Data Attestation: I reviewed the patient's lab results. 08/18/24 11:15 08/18/24 11:15 Labs: Lab Results 08/18/24 08/18/24 Range/Units 11:15 11:31 WBC 9.8 (4.5-11.0) X10^3/uL RBC 4.63 (4.0-5.2) X10^6/uL Hgb 14.8 (12.0-16.0) g/dL Hct 44.9 (36-46) % MCV 96.9 (80-100) fL MCH 32.0 (26-34) PG MCHC 33.0 (30-36) % RDW 16.0 H (11.6-14.8) % Plt Count 305 (150-400) X10^3/uL Neut % (Auto) 80.0 H (50-75) % Lymph % (Auto) 12.7 L (25-40) % Tift % (Auto) 4.7 (3-14) % Eos % (Auto) 1.3 L (2-4) % Baso % (Auto) 1.3 (0-2) % Neut # (Auto) 7800 H (5008-8714) /uL Lymph # (Auto) 1200 (0159-1632) /uL Tift # (Auto) 500 (0-900) /uL Eos # (Auto) 100 (0-450) /uL Baso # (Auto) 100 (0-100) /uL PT 12.5 (9.4-12.5) SECONDS INR 1.1 (0.9-1.3) APTT 48 H (25.1-36.5) SECONDS Sodium 138 (137-145) mmol/L Potassium 4.1 (3.4-5.1) mmol/L Chloride 107 (98-107) mmol/L Carbon Dioxide 21 L (22-32) mmol/L BUN 17 (7-17) mg/dL Creatinine 0.76 (0.52-1.04) mg/dL Estimated GFR > 60 (>60) mL/min BUN/Creatinine Ratio 22.4 H (6-22) Glucose 170 H (80-110) mg/dL Calcium 9.5 (8.4-10.2) mg/dL Magnesium 1.9 (1.6-2.3) mg/dL Total Bilirubin 0.7 (0.2-1.3) mg/dL AST 29 (14-36) IU/L ALT 29 (<35) IU/L Alkaline Phosphatase 77 (38-126) U/L Total Creatine Kinase 29 L (30-135) U/L Troponin I < 0.012 (0.01-0.034) ng/mL NT-Pro-B Natriuret Pep 180 (<450) pg/mL Total Protein 7.2 (6.3-8.2) g/dL Albumin 4.3 (3.5-5.0) g/dL Globulin 2.9 (1.7-4.1) g/dL Albumin/Globulin Ratio 1.5 (1.0-2.8) Lipase 65 (23-300) U/L Urine RBC 1-5/hpf (0-5/HPF) Urine WBC 5-10/hpf H (0-5/HPF) Ur Squamous Epith Cells 5-10 /hpf H (0-5/HPF) Amorphous Sediment 1+ Urine Bacteria Few (2-10) H (None) Ur Culture Indicated? Specimen cultured Vol Urine Centrifuged 10ml (spun) Urine Dip Bedside Urine Glucose 1000 mg/dl Bedside Urine Bilirubin - Negative Bedside Urine Ketone - Negative Urine Specific Angelica 1.005 Bedside Urine Occult Blood + Bedside Urine pH 6.0 Bedside Urine Protein - Negative Bedside Urine Urobilinogen - Negative Bedside Urine Nitrite - Negative Bedside Urine Leukocytes +/- 15 Esterase Imaging Data Chest x-ray: Radiologist's Impresson: PROCEDURE: XR CHEST 1V INDICATIONS: chest pain TECHNIQUE: One view of the chest was acquired. COMPARISON: [facility], CR, XR CHEST 1V, 08/08/2022, 13:29. [facility], , XR CHEST 1V, 03/19/2022, 8:22. FINDINGS: Surgical changes and devices: Cervical fusion hardware partially seen. Lungs and pleura: Low lung volumes. No dense airspace disease or pleural effusions. Mediastinum: Heart size is at the upper limit of normal, unchanged. Bones and chest wall: Degenerative findings. IMPRESSION: Low lung volumes on single view radiography, limiting evaluation. No dense consolidation or pleural effusion identified. CT scan - abdomen/pelvis: Radiologist's Impresson: PROCEDURE: CT KIDNEY URETER BLADDER (KUB) INDICATIONS: R sided flank pain eval for stone TECHNIQUE: Axial sections were acquired from the lung bases to the pubic symphysis. Coronal and sagittal reformats were performed. For radiation dose reduction, the following was used: automated exposure control, adjustment of mA and/or kV according to patient size. COMPARISON: None. FINDINGS: Image quality: Diagnostic Lower chest: Basal atelectasis. Mild cardiomegaly. Coronary calcifications. Liver: No contour deforming mass. Solid organs otherwise not well assessed without IV contrast Gallbladder and biliary system: Cholecystectomy clips. No biliary ductal dilation Pancreas: No ductal dilation Spleen: Nonenlarged Adrenals: 2.1 centimeter right adrenal nodule, indeterminate attenuation on noncontrast CT. Kidneys: No obstructing calcified stone. There is mild edematous fat stranding around the right ureter. 1 millimeter nonobstructing stone seen in the right-sided calyx. Numerous pelvic phleboliths are seen around the distal ureters. No contour deforming solid mass Vessels and lymph nodes: Atherosclerotic calcifications without abdominal aortic aneurysm. No pathologic lymph nodes by size criteria. Bowel and peritoneum: There are colonic diverticula. No small bowel obstruction or pathologic ascites. Body wall: Small fat and bowel containing umbilical hernia without obstruction Pelvis: Bladder is unremarkable. The uterus is absent Bones: No acute or suspicious osseous finding. IMPRESSION: No obstructing calcified stone or hydronephrosis. 1 millimeter nonobstructing right calyceal calculus is present. Mild edematous fat stranding adjacent to the right ureter, correlate urinalysis. Differential includes a recently passed stone. 2.1 centimeter right adrenal nodule with intermediate density, usually lipid poor adenoma. This could be confirmed with adrenal protocol imaging. Other findings above. ECG Data Attestation: I personally reviewed and interpreted this ECG as follows: Interpretation: Atrial fibrillation Ventricular rate of 118 Left axis deviation Normal QRS No ST T wave changes MDM Narrative Medical decision making narrative: Patient reports improvement of symptoms after labs and CT scan. Her urinalysis today is not consistent with a urinary tract infection however urine culture was pending at the time of her discharge. She does have a right-sided kidney stone but no ureteral stone. The skin changes concerning for zoster. The rest of her CT scan is unremarkable. There was no indication for antibiotics currently. She was in AFib. She was given an extra dose of metoprolol. She was anticoagulated. She was now rate controlled. I offered cardioversion here in the emergency department. Discussed risks and benefits. We also discussed that she potentially could convert on her own over the next couple days and follow up up with the primary management specialist. She opted to wait and follow up with her primary management specialist. She potentially has been in AFib for some time she states she has had some palpitations over the past couple weeks. She was given return precautions and follow-up instructions. She expressed understanding and agreement with the plan. Discharge Plan Departure Patient Disposition: Home Clinical Impression: A-fib, Flank pain, Adrenal nodule Instructions: DI for Atrial Fibrillation Activity Restrictions/Additional Instructions: Recommend that you continue to take all of your medications as directed. If your heart rate remains above 100 after taking your normal daily dose of metoprolol you can take an extra dose of this medication like we discussed. I do recommend that on Tuesday you contact your management specialist for a follow-up. There was an incidental finding of an adrenal nodule in the CT scan today. Nothing emergent needs to be done about this but you do need to talk with your primary doctor about follow-up. Return to the emergency department for new or worsening symptoms. Prescriptions: No Action mometasone 0.1 % ointment topical Eliquis 5 mg tablet See Rx Instructions .ROUTE .COMPLEX Qty: 180 1RF Dose Instruction: TAKE 1 TABLET TWICE A DAY Rx Instructions: TAKE 1 TABLET TWICE A DAY Jardiance 25 mg tablet 25 mg PO DAILY Qty: 90 3RF metformin 500 mg tablet 500 mg PO BID Qty: 180 3RF metformin 500 mg tablet 500 mg PO BID Qty: 180 0RF atorvastatin 20 mg tablet 20 mg PO DAILY Entresto 24-26 mg tablet PO metoprolol succinate 25 mg tablet extended release 24 hr 12.5 mg PO DAILY amiodarone 100 mg tablet 50 mg PO spironolactone 25 mg tablet 12.5 mg PO DAILY cetirizine 10 mg Tablet 10 mg PO DAILY cholecalciferol (vitamin D3) 50 mcg (2,000 unit) Tablet 2,000 unit PO DAILY azathioprine 50 mg tablet 50 mg PO DAILY mesalamine [Lialda] 1.2 gram tablet,delayed release (DR/EC) 3.6 g PO TID Patient Comments: Take 3 tablet by mouth twice a day Referrals: [facility], [Primary Care Provider] - Stand Alone Forms: Patient Portal/API/Survey
[2024-08-18] MEDS: METOPROLOL IR 25 MG TABLET PO (12:12)
[2024-08-18 12:17] LABS: Alanine Aminotransferase 29 IU/L (<35); Albumin 4.3 g/dL (3.5-5.0); Albumin Globulin Ratio 1.5 (1.0-2.8); Alkaline Phosphatase 77 U/L (38-126); Aspartate Aminotransferase 29 IU/L (14-36); BUN Creatinine Ratio 22.4 (6-22); Bilirubin Total 0.7 mg/dL (0.2-1.3); Blood Urea Nitrogen 17 mg/dL (7-17); Calcium 9.5 mg/dL (8.4-10.2); Carbon Dioxide 21 mmol/L (22-32); Chloride 107 mmol/L (98-107); Creatine Kinase 29 U/L (30-135); Estimated Glomerular Filt Rate > 60 mL/min (>60); Globulin 2.9 g/dL (1.7-4.1); Glucose 170 mg/dL (80-110); HEMOLYSIS < 15 (0-50); Lipase 65 U/L (23-300); Magnesium 1.9 mg/dL (1.6-2.3); Potassium 4.1 mmol/L (3.4-5.1); Sodium 138 mmol/L (137-145); Total Protein 7.2 g/dL (6.3-8.2)
[2024-08-18 12:28] LABS: NT-proBNP (BNP-Adult 18+) 180 pg/mL (<450); Troponin I < 0.012 ng/mL (0.01-0.034)
--- NOTE | 2024-08-18 12:41 | DI.CT.S_ITS ---
PROCEDURE: CT KIDNEY URETER BLADDER (KUB) INDICATIONS: R sided flank pain eval for stone TECHNIQUE: Axial sections were acquired from the lung bases to the pubic symphysis. Coronal and sagittal reformats were performed. For radiation dose reduction, the following was used: automated exposure control, adjustment of mA and/or kV according to patient size. COMPARISON: None. FINDINGS: Image quality: Diagnostic Lower chest: Basal atelectasis. Mild cardiomegaly. Coronary calcifications. Liver: No contour deforming mass. Solid organs otherwise not well assessed without IV contrast Gallbladder and biliary system: Cholecystectomy clips. No biliary ductal dilation Pancreas: No ductal dilation Spleen: Nonenlarged Adrenals: 2.1 centimeter right adrenal nodule, indeterminate attenuation on noncontrast CT. Kidneys: No obstructing calcified stone. There is mild edematous fat stranding around the right ureter. 1 millimeter nonobstructing stone seen in the right-sided calyx. Numerous pelvic phleboliths are seen around the distal ureters. No contour deforming solid mass Vessels and lymph nodes: Atherosclerotic calcifications without abdominal aortic aneurysm. No pathologic lymph nodes by size criteria. Bowel and peritoneum: There are colonic diverticula. No small bowel obstruction or pathologic ascites. Body wall: Small fat and bowel containing umbilical hernia without obstruction Pelvis: Bladder is unremarkable. The uterus is absent Bones: No acute or suspicious osseous finding. IMPRESSION: No obstructing calcified stone or hydronephrosis. 1 millimeter nonobstructing right calyceal calculus is present. Mild edematous fat stranding adjacent to the right ureter, correlate urinalysis. Differential includes a recently passed stone. 2.1 centimeter right adrenal nodule with intermediate density, usually lipid poor adenoma. This could be confirmed with adrenal protocol imaging. Other findings above. Dictated by: Abe Mallory M.D. on 08/18/2024 at 12:04 Approved by: Abe Mallory M.D. on 08/18/2024 at 12:09
[2024-08-18 14:32] LABS: Urine Volume 10mL (spun)
[2024-08-18 14:33] LABS: Amorphous Sediment Urine 1+; Bacteria Urine Few (2-10); Culture Indicated Urine Specimen Cultured; RBC Urine 1-5/HPF (0-5/HPF); Squamous Epithelial Cell Urine 5-10 /HPF (0-5/HPF); WBC Urine 5-10/HPF (0-5/HPF)
== END 2024-08-18 14:46 | disposition home or self-care (01) ==
PROVIDERS: Emergency Provider Emergency Medicine; PCP Family Medicine
DX: I48.91 Unspecified atrial fibrillation (principal); R10.9 Unspecified abdominal pain; N20.0 Calculus of kidney; Z79.01 Long term (current) use of anticoagulants; E27.8 Other specified disorders of adrenal gland
CPT/HCPCS: 36415; 71045; 74176; 80053; 81003; 81015; 82550; 83690; 83735; 83880; 84484; 85025; 85610; 85730; 87086; 93005; 99284

== ENCOUNTER → 2024-09-11 16:36 | Outpatient (CLI) | payer MEDICARE, OTHER, SELFPAY ==
[2022-08-08 18:25] VITALS: BMI 44.6
--- NOTE | 2024-09-11 16:38 | DI.RAD.S_ITS ---
PROCEDURE: XR SHOULDER LT MIN 2V INDICATIONS: eval L shoulder pain TECHNIQUE: 3 views of the shoulder were acquired. COMPARISON: None. FINDINGS: Bones: No fractures or dislocations. No suspicious bony lesions. Visualized ribs appear intact. Moderate acromioclavicular and glenohumeral degenerative narrowing. Periarticular osteophytes are present. No erosions. Soft tissues: No suspicious soft tissue calcifications. IMPRESSION: Acromioclavicular and glenohumeral arthritic change. Dictated by: Lucina Win M.D. on 09/12/2024 at 21:14 Approved by: Lucina Win M.D. on 09/12/2024 at 21:15
== END ==
LOC: RAD 16:37
PROVIDERS: PCP Family Medicine; Referring Provider Family Medicine; Visit Provider Family Medicine
DX: M19.012 Primary osteoarthritis, left shoulder (principal); M25.512 Pain in left shoulder
CPT/HCPCS: 73030

== ENCOUNTER 2024-10-24 10:29 | Emergency (ER) | payer MEDICARE, OTHER, SELFPAY ==
[2022-08-08 18:25] VITALS: BMI 44.6
[2024-10-24] VITALS (25 sets, daily range): BP systolic 106–159; BP diastolic 56–81; PULSE 64–141; RESP 9–22; TEMP 36.8; O2SAT 89–100; BMI 43.7
--- NOTE | 2024-10-24 10:42 | EKG_ITS ---
[address] [address] Test Date: 2024-10-24 Pat Name: Ruby Reynolds Department: Room: Gender: Female [employer] Tester: MERRY : 1940 Requested By: Order Number: [id number] Reading MD: Omar Hunt Measurements Intervals [place] Day Rate: 102 P: NM: QRS: -24 QRSD: 88 T: 95 QT: 320 QTc: 417 Interpretive Statements atrial flutter with variable AV block, possibly with atrial fibrillation rapid ventricular response Low voltage QRS Cannot rule out Anterior infarct , age undetermined Electronically Signed On 10-27-2024 18:28:08 PDT by Omar Hunt
--- NOTE | 2024-10-24 10:42 | DI.RAD.S_ITS ---
PROCEDURE: XR CHEST 1V INDICATIONS: chest pain TECHNIQUE: One view of the chest was acquired. COMPARISON: [facility], CR, XR CHEST 1V, 08/18/2024, 11:13. FINDINGS: Surgical changes and devices: Postsurgical changes are seen in lower cervical spine. Lungs and pleura: Blunting of left costophrenic angle is seen with ill-defined left basilar infiltrate/atelectasis. No pneumothorax. Mediastinum: Mediastinal contours appear normal. Heart size is enlarged. Bones and chest wall: No suspicious bony lesions. Overlying soft tissues appear unremarkable. IMPRESSION: Small left pleural effusion and left basilar small infiltrate/atelectasis. No pneumothorax. Dictated by: Jevon Joseph M.D. on 10/24/2024 at 10:58 Approved by: Jevon Joseph M.D. on 10/24/2024 at 10:59
[2024-10-24 10:55] LABS: Add Manual Diff / Slide Review NO; Basophils Absolute Auto 100 /uL (0-100); Basophils Percent Auto 1.2 % (0-2); Eosinophils Absolute Auto 100 /uL (0-450); Eosinophils Percent Auto 1.4 % (2-4); Hematocrit 43.7 % (36-46); Hemoglobin 14.5 g/dL (12.0-16.0); Lymphocytes Absolute Auto 1000 /uL (1100-4500); Mean Corpuscular HGB Conc 33.3 % (30-36); Mean Corpuscular Hemoglobin 32.6 PG (26-34); Monocytes Absolute Auto 400 /uL (0-900); Monocytes Percent Auto 3.8 % (3-14); Neutrophils Absolute Auto 7600 /uL (1500-7000); Neutrophils Percent Auto 82.6 % (50-75); Platelet Count 333 X10^3/uL (150-400); Red Blood Cell Count 4.46 X10^6/uL (4.0-5.2); Red Cell Distribution Width 16.6 % (11.6-14.8); White Blood Cell Count 9.2 X10^3/uL (4.5-11.0)
[2024-10-24 11:14] LABS: Alanine Aminotransferase 33 IU/L (<35); Albumin 4.5 g/dL (3.5-5.0); Albumin Globulin Ratio 1.6 (1.0-2.8); Alkaline Phosphatase 74 U/L (38-126); Aspartate Aminotransferase 29 IU/L (14-36); BUN Creatinine Ratio 22.3 (6-22); Blood Urea Nitrogen 23 mg/dL (7-17); Calcium 9.6 mg/dL (8.4-10.2); Carbon Dioxide 20 mmol/L (22-32); Chloride 104 mmol/L (98-107); Estimated Glomerular Filt Rate 55 mL/min (>60); Globulin 2.9 g/dL (1.7-4.1); Glucose 138 mg/dL (80-110); HEMOLYSIS < 15 (0-50); Lipase 81 U/L (23-300); Magnesium 1.8 mg/dL (1.6-2.3); Potassium 4.6 mmol/L (3.4-5.1); Sodium 136 mmol/L (137-145); Total Protein 7.4 g/dL (6.3-8.2)
[2024-10-24 11:25] LABS: NT-proBNP (BNP-Adult 18+) 299 pg/mL (<450)
[2024-10-24 11:26] LABS: Troponin I < 0.012 ng/mL (0.01-0.034)
--- NOTE | 2024-10-24 12:58 | ED_ITS ---
HPI - Arrhythmia/Palpitations General Chief Complaint: Arrhythmia/Palpitations Stated Complaint: Sent from Cardiology , In AFIB Time Seen by Provider: 10/24/24 10:41 Source: patient Mode of arrival: Family Vehicle History of Present Illness HPI narrative: 83-year-old woman with a history of atrial fibrillation, currently on amiodarone, history of heart failure with reduced ejection fraction, most recent cardioversion was September 12 after a transesophageal echo. Patient presents today noting that she has been increasingly fatigued for the past 4 days and that her apple watch noted atrial fibrillation. She is anticoagulated was seen by Cardiology this morning with recommendations to present to the emergency department for consideration of direct cardioversion. Presuming cardioversion is successful recommendation was to increase the amiodarone from twice a day to once a day and follow up with Cardiology. Patient states that aside from some fatigue she has not having shortness of breath, chest pain, exertional dyspnea, significant lower extremity edema. She again confirmed she has been taking her apixaban regularly. She does not describe any recent viral symptoms, fever, cough or abdominal pain Related Data Home Medications Medication Instructions Recorded Confirmed cetirizine 10 mg tablet 10 mg PO DAILY 03/16/22 09/17/24 cholecalciferol (vitamin D3) 50 2,000 unit PO DAILY 03/16/22 09/17/24 mcg (2,000 unit) tablet atorvastatin 20 mg tablet 20 mg PO DAILY 09/30/22 09/17/24 azathioprine 50 mg tablet 50 mg PO DAILY 09/30/22 09/17/24 mesalamine 1.2 gram tablet,delayed 3.6 g PO TID 09/30/22 09/17/24 release (Lialda) sacubitril 24 mg-valsartan 26 mg tab PO 09/30/22 09/17/24 tablet (Entresto) metoprolol succinate 25 mg 12.5 mg PO DAILY 10/20/23 09/17/24 tablet,extended release 24 hr spironolactone 25 mg tablet 12.5 mg PO DAILY 10/20/23 09/17/24 mometasone 0.1 % topical ointment topical 06/26/24 09/17/24 amiodarone 100 mg tablet 200 mg PO DAILY 09/11/24 09/17/24 Previous Rx's Medication Instructions Recorded apixaban 5 mg tablet (Eliquis) See Rx Instructions .Route 01/13/23 .COMPLEX #180 tabs metformin 500 mg tablet 500 mg PO BID #180 tabs 10/11/23 empagliflozin 25 mg tablet 25 mg PO DAILY #90 tabs 09/03/24 (Jardiance) tramadol 50 mg tablet 50 mg PO BID PRN pain #30 tabs 09/11/24 mupirocin 2 % topical ointment 1 applic topical BID #15 grams 09/17/24 tirzepatide 5 mg/0.5 mL 5 mg (0.5 mL) SUBCUT QWEEK #2 mL 09/17/24 subcutaneous pen injector (Mounjaro) tirzepatide 2.5 mg/0.5 mL 2.5 mg (0.5 mL) SUBCUT QWEEK #2 mL 10/10/24 subcutaneous pen injector (Mounjaro) Allergies Allergy/AdvReac Type Severity Reaction Status Date / Time codeine AdvReac Weakness Verified 09/17/24 11:04 morphine AdvReac Vomiting Verified 09/17/24 11:04 Review of Systems Review of Systems Narrative: Pertinent positive and negative findings as per HPI Patient History Medical History Adhesive capsulitis of left shoulder History of atrial fibrillation Skin lesion Hypertension Hyperlipidemia Exercise intolerance Left knee pain Sleep apnea Type 2 diabetes mellitus Ulcerative colitis in remission Social History household members: spouse Smoking Status: Former smoker alcohol intake: never Smoking Status: Former smoker tobacco type: cigarettes Exam Initial Vital Signs Initial Vital Signs: Vital Signs Temperature 98.3 F 10/24/24 10:30 Pulse Rate 108 H 10/24/24 10:30 Respiratory Rate 16 10/24/24 10:30 Blood Pressure 136/74 10/24/24 10:30 Pulse Oximetry 100 10/24/24 10:30 Oxygen Delivery Method Room Air 10/24/24 10:30 General: Healthy appearing, in no acute distress. Able to give a complete and coherent history. Well-nourished well-developed HEENT: Moist mucous membranes, normal sclera with reactive pupils, Neck: No JVD, Respiratory: Lungs are clear to auscultation, no rales. No wheezing appreciated Cardiac: Irregular, mildly tachycardic. No appreciated murmurs Abdomen: Soft, nontender, good bowel tones, no flank pain Skin: Warm and dry, no rashes Neurologic: Grossly neurologically intact with no obvious asymmetries or abnormalities Extremities: No trauma, well perfused, no significant lower extremity edema Psych: Cooperative, appropriate insight and affect Procedures Cardioversion Time of Cardioversion: 13:21 Consent Signed: Yes Indication: A fib with RVR Stability: Stable Number of attempts (shocks): 1 Joules used: 200 Cardiac rhythm post-cardioversion: NSR Procedural Sedation Time of procedure: 13:22 Consent signed: Yes Time out performed: Yes Indication: cardioversion ASA Class: III Mallampati Airway Classification: Class III Preparation: tree tapping laborer applied, pulse oximeter, capnometry used, supplemental O2 applied, suction/airway equipment at bedside and IV secured IV Propofol dose (mg): 40 Intraservice time/total sedation time (min): 7 ED Sedation Level: Moderate (Concious) Patient Tolerated Procedure: Well Course Orders Ordered: ED Orders 10/24/24 10:42 XR chest 1V Stat EKG-12 Lead Stat 10/24/24 10:44 Complete Blood Count AUTO DIFF Stat Comprehensive Metabolic Panel Stat Lipase Stat Magnesium Stat NT-proBNP (BNP-Adult 18+) Stat Trop I [Troponin I] Stat Discontinued Medications Aspirin (Aspirin 81 Mg Chew Tab) 324 mg PO NOW ONE Stop: 10/24/24 10:43 Propofol (Propofol 200 Mg/20 Ml Vial) 200 mg IV NOW ONE Stop: 10/24/24 10:42 Vital Signs Vital signs: Vital Signs - 8 hr 10/24/24 10:30 Temperature 98.3 F Pulse Rate 108 H Respiratory Rate 16 Blood Pressure 136/74 Pulse Oximetry 100 Oxygen Delivery Method Room Air MDM - Arrhythmia/Palpitations Lab Data 10/24/24 10:44 10/24/24 10:44 Labs: Lab Results 10/24/24 10/24/24 Range/Units 10:44 10:44 WBC 9.2 (4.5-11.0) X10^3/uL RBC 4.46 (4.0-5.2) X10^6/uL Hgb 14.5 (12.0-16.0) g/dL Hct 43.7 (36-46) % MCV 98.0 (80-100) fL MCH 32.6 (26-34) PG MCHC 33.3 (30-36) % RDW 16.6 H (11.6-14.8) % Plt Count 333 (150-400) X10^3/uL Neut % (Auto) 82.6 H (50-75) % Lymph % (Auto) 11.0 L (25-40) % [place] % (Auto) 3.8 (3-14) % Eos % (Auto) 1.4 L (2-4) % Baso % (Auto) 1.2 (0-2) % Neut # (Auto) 7600 H (3959-6908) /uL Lymph # (Auto) 1000 L (2729-9285) /uL [place] # (Auto) 400 (0-900) /uL Eos # (Auto) 100 (0-450) /uL Baso # (Auto) 100 (0-100) /uL PT Cancelled INR Cancelled APTT Cancelled Sodium 136 L (137-145) mmol/L Potassium 4.6 (3.4-5.1) mmol/L Chloride 104 (98-107) mmol/L Carbon Dioxide 20 L (22-32) mmol/L BUN 23 H (7-17) mg/dL Creatinine 1.03 (0.52-1.04) mg/dL Estimated GFR 55 L (>60) mL/min BUN/Creatinine Ratio 22.3 H (6-22) Glucose 138 H (80-110) mg/dL Calcium 9.6 (8.4-10.2) mg/dL Magnesium 1.8 (1.6-2.3) mg/dL Total Bilirubin 1.0 (0.2-1.3) mg/dL AST 29 (14-36) IU/L ALT 33 (<35) IU/L Alkaline Phosphatase 74 (38-126) U/L Total Creatine Kinase Cancelled Troponin I Cancelled < 0.012 NT-Pro-B Natriuret Pep 299 (<450) pg/mL Total Protein 7.4 (6.3-8.2) g/dL Albumin 4.5 (3.5-5.0) g/dL Globulin 2.9 (1.7-4.1) g/dL Albumin/Globulin Ratio 1.6 (1.0-2.8) Lipase 81 (23-300) U/L MDM Narrative Medical decision making narrative: CC: Recurrent atrial fibrillation Complicating co-morbidities: Paroxysmal atrial fibrillation, anticoagulated, hypertension, hyperlipidemia, sleep apnea Data collected from: patient Medical records reviewed: Available records on [facility] reviewed. Recent cardiology records from [facility] are also reviewed Differential considered: Recurrent AFib, acute coronary syndrome, acute congestive heart failure, viral cardiomyopathy, pulmonary embolus Exam documented above, pertinent findings include: Aside from her atrial fibrillation her exam is otherwise quite benign. No significant secondary signs of congestive heart failure Lab Test results independently reviewed as above. Pertinent findings: CBC is unremarkable with no suggestion of infection or anemia Chemistries show a creatinine at 1.03 with a GFR of 55. Normal potassium sodium is at 136 Troponin is undetectable BNP is not elevated Independently reviewed EKG: Atrial fibrillation at a rate of 102, no ischemic change Imaging studies independently reviewed: Chest x-ray shows blunting of the left costophrenic angle. No significant cardiomegaly, no pneumothorax Treatments: Propofol sedation Successful cardioversion Discussion: 83-year-old woman with recurrent episode of atrial fibrillation. Sent in by her physician's office for cardioversion. Workup is unremarkable. She is cardioverted without difficulty. Recommendation from her meeting specialist was to decrease her amiodarone to 200 mg daily. We will have her absolutely continue her anticoagulation follow up with Cardiology for continued evaluation of her paroxysmal atrial fibrillation Discharge Plan Departure Patient Disposition: Home Clinical Impression: Atrial fibrillation with rapid ventricular response Instructions: DI for Atrial Fibrillation, DI for Moderate Sedation Activity Restrictions/Additional Instructions: Thank you for coming in today, I am sorry that you are atrial fibrillation has returned We were able to shock you with a single shock and converted back to sinus rhythm. Dr Myles has requested that you decrease your amiodarone from 200 mg twice a day to 200 mg once a day only Please make sure you are continuing your apixaban Please follow up with Dr. Myles to figure out with the next steps in treating your atrial fibrillation we will be Prescriptions: No Action mometasone 0.1 % ointment topical Eliquis 5 mg tablet See Rx Instructions .ROUTE .COMPLEX Qty: 180 1RF Dose Instruction: TAKE 1 TABLET TWICE A DAY Rx Instructions: TAKE 1 TABLET TWICE A DAY metformin 500 mg tablet 500 mg PO BID Qty: 180 3RF Jardiance 25 mg tablet 25 mg PO DAILY Qty: 90 3RF Mounjaro 2.5 mg/0.5 mL pen injector 2.5 mg SUBCUT QWEEK Qty: 2 2RF Rx Instructions: for 4 weeks 2.5 mg atorvastatin 20 mg tablet 20 mg PO DAILY Entresto 24-26 mg tablet PO metoprolol succinate 25 mg tablet extended release 24 hr 12.5 mg PO DAILY spironolactone 25 mg tablet 12.5 mg PO DAILY amiodarone 100 mg tablet 200 mg PO DAILY Rx Instructions: taking 200 mg BID on 09/11/24 for two weeks then down to 200 mg daily tramadol 50 mg tablet 50 mg PO BID PRN (Reason: pain) Qty: 30 0RF Mounjaro 5 mg/0.5 mL pen injector 5 mg SUBCUT QWEEK Qty: 2 0RF Rx Instructions: after 2.5 mg dose mupirocin 2 % ointment 1 applic topical BID Qty: 15 0RF cetirizine 10 mg Tablet 10 mg PO DAILY cholecalciferol (vitamin D3) 50 mcg (2,000 unit) Tablet 2,000 unit PO DAILY azathioprine 50 mg tablet 50 mg PO DAILY mesalamine [Lialda] 1.2 gram tablet,delayed release (DR/EC) 3.6 g PO TID Patient Comments: Take 3 tablet by mouth twice a day Referrals: Lexx Easton DO [Primary Care Provider] - Stand Alone Forms: Patient Portal/API/Survey
[2024-10-24] MEDS: propofoL 200 MG/20 ML VIAL IV (13:21)
--- NOTE | 2024-10-24 13:25 | EKG_ITS ---
[place] [address] [address] [place] [id number] Test Date: 2024-10-24 Pat Name: Ruby Reynolds Department: [facility] Room: Gender: Female [employer] Supervisor: : 1940 Requested By: Order Number: [id number] Reading MD: Omar Hunt Measurements Intervals [place] Rate: 69 P: 59 TN: 182 QRS: -24 QRSD: 90 T: 30 QT: 424 QTc: 454 Interpretive Statements Sinus rhythm with occasional premature ventricular complexes and fusion complexes Low voltage QRS Cannot rule out Anterior infarct , age undetermined Electronically Signed On 10-27-2024 18:28:23 PDT by Omar Hunt
== END 2024-10-24 15:28 | disposition home or self-care (01) ==
PROVIDERS: Emergency Provider Emergency Medicine; PCP Family Medicine
DX: I48.20 Chronic atrial fibrillation, unspecified (principal); Z79.01 Long term (current) use of anticoagulants
CPT/HCPCS: 36415; 71045; 80053; 83690; 83735; 83880; 84484; 85025; 92960; 93005; 99285; J2704

== ENCOUNTER → 2024-11-30 12:32 | Outpatient (CLI) | payer MEDICARE, OTHER, SELFPAY ==
[2022-08-08 18:25] VITALS: BMI 44.6
[2024-11-30 13:40] LABS: Blood Urea Nitrogen 15 mg/dL (7-17); Calcium 9.7 mg/dL (8.4-10.2); Carbon Dioxide 24 mmol/L (22-32); Chloride 105 mmol/L (98-107); Estimated Glomerular Filt Rate > 60 mL/min (>60); Glucose 107 mg/dL (80-110); HEMOLYSIS < 15 (0-50); Potassium 5.3 mmol/L (3.4-5.1); Sodium 138 mmol/L (137-145)
== END ==
PROVIDERS: PCP Family Medicine; Referring Provider Internal Medicine Cardiovascular Disease; Visit Provider Internal Medicine Cardiovascular Disease
DX: I27.20 Pulmonary hypertension, unspecified (principal); I48.19 Other persistent atrial fibrillation
CPT/HCPCS: 36415; 80048

== ENCOUNTER → 2025-06-26 15:09 | Outpatient (CLI) | payer MEDICARE, OTHER, SELFPAY ==
[2022-08-08 18:25] VITALS: BMI 44.6
[2025-06-26 16:21] LABS: Add Manual Diff / Slide Review NO; Hematocrit 42.2 % (36-46); Hemoglobin 14.3 g/dL (12.0-16.0); Lymphocytes Absolute Auto 800 /uL (1100-4500); Mean Corpuscular HGB Conc 33.9 % (30-36); Mean Corpuscular Hemoglobin 34.3 PG (26-34); Mean Corpuscular Volume 101.3 fL (80-100); Platelet Count 236 X10^3/uL (150-400)
[2025-06-26 16:36] LABS: Alanine Aminotransferase 22 IU/L (<35); Albumin 4.0 g/dL (3.5-5.0); Albumin Globulin Ratio 1.5 (1.0-2.8); Alkaline Phosphatase 76 U/L (38-126); Blood Urea Nitrogen 20 mg/dL (7-17); Calcium 9.3 mg/dL (8.4-10.2); Carbon Dioxide 18 mmol/L (22-32); Chloride 106 mmol/L (98-107); Estimated Glomerular Filt Rate > 60 mL/min (>60); Globulin 2.6 g/dL (1.7-4.1); Glucose 114 mg/dL (70-99); HEMOLYSIS < 15 (0-50); Potassium 4.5 mmol/L (3.4-5.1); Sodium 138 mmol/L (137-145); Total Protein 6.6 g/dL (6.3-8.2)
[2025-06-26 17:06] LABS: TSH w/ Reflex to FT4 1.22 uIU/mL (0.47-4.68)
[2025-06-26 17:54] LABS: Hemoglobin A1C% w Est Avg Glu 5.3 % (4.0-6.0)
== END ==
PROVIDERS: PCP Family Medicine; Referring Provider Family Medicine; Visit Provider Family Medicine
DX: E11.9 Type 2 diabetes mellitus without complications (principal); E87.5 Hyperkalemia; I11.0 Hypertensive heart disease with heart failure; I50.22 Chronic systolic (congestive) heart failure; E78.00 Pure hypercholesterolemia, unspecified
CPT/HCPCS: 36415; 80053; 83036; 84443; 85025

== ENCOUNTER → 2025-06-28 11:06 | Outpatient (CLI) | payer MEDICARE, OTHER, SELFPAY ==
[2022-08-08 18:25] VITALS: BMI 44.6
== END ==
LOC: LAB 11:06
PROVIDERS: PCP Family Medicine; Visit Provider Family Medicine
DX: N30.00 Acute cystitis without hematuria (principal)
CPT/HCPCS: 87077; 87086; 87186